=== PATIENT | female | born 1945 | race Caucasian/White ===

== ENCOUNTER 2025-01-07 19:40 | Observation (INO) | payer MEDICARE, OTHER ==
[2025-01-07] MEDS ORDERED: Sodium Chloride 0.9% 1000 ML 1,000 ML ONE (19:46)
[2025-01-07] MEDS ORDERED: EPINEPHRINE ABBOJECT 1 MG/10 ML ONE (19:46)
[2025-01-07] MEDS: EPINEPHRINE ABBOJECT 1 MG/10 ML IV ONE ×2 (19:50→20:50)
[2025-01-07] MEDS ORDERED: ROCEPHIN 2 GM/100 ML NACL 2 GM/100 ML IVPB IV ONE (19:56)
[2025-01-07] MEDS: ROCEPHIN 2 GM/100 ML NACL 2 GM/100 ML IVPB IV ONE (19:57)
[2025-01-07] MEDS: Sodium Chloride 0.9% 1000 ML 1,000 ML IV SCH ×2 (19:59→20:03)
--- NOTE | 2025-01-07 20:06 | ERPHSYRPT ---
- History of Present Illness Time Seen by Provider: 01/07/25 20:00 Source: patient, EMS Exam Limitations: no limitations Physician History: 79-year-old female brought in by ambulance for weakness. She has been treated for UTI since Thursday on levofloxacin. Patient reports suprapubic abdominal pain this morning with generalized weakness and dizziness. Blood pressure 80s over 30s on arrival with normal saline running. Patient is alert and oriented x 3. She has a history of uterine cancer. Timing/Duration: day(s) (5) Activites at Onset: rest Quality: sharpness Onset Location: suprapubic Pain Radiation: none Severity of Pain-Max: mild Severity of Pain-Current: mild Prior abdominal problems: UTI, other (uterine CA) Sexual intercourse history: non-contributory Modifying Factors: Improves With: nothing. Worsens With: palpation, urinating Associated Symptoms: abdominal pain, fever, nausea, vomiting, dysuria, urinary frequency, No swelling Allergies/Adverse Reactions: Sulfa (Sulfonamide Antibiotics) Adverse Reaction (Intermediate, Verified 01/07/25 19:44) Home Medications: Albuterol Sulfate [Albuterol Sulfate Hfa] 2 puffs IH Q4H PRN PRN 01/07/25 [History] Allopurinol 100 mg [Zyloprim 100 mg] 1 tab PO DAILY 01/07/25 [History] Dapagliflozin Propanediol [Farxiga] 1 tab PO DAILY 01/07/25 [History] Diclofenac Sodium [Diclofono] 1 applic TOP QID 01/07/25 [History] Fluconazole 100 mg [Diflucan 100 MG] 1 tab PO DAILY 01/07/25 [History] Fluticasone Propionate 50 mcg IH DAILY 01/07/25 [History] Furosemide [Lasix] 20 mg PO DAILY 01/07/25 [History] Gabapentin 400 mg PO DAILY 01/07/25 [History] Gabapentin 800 mg PO EVENING MEAL 01/07/25 [History] Glipizide 10 mg [Glucotrol 10 MG] 1 tab PO BID 01/07/25 [History] Imipramine HCl 25 mg PO HS 01/07/25 [History] Insulin Glargine,Hum.rec.anlog [Basaglar Kwikpen U-100] 10 - 15 units SQ BID PRN 01/07/25 [History] Latanoprost/Pf [Iyuzeh 0.005% Eye Drop] 1 drop DROPS HS 01/07/25 [History] Levothyroxine Sodium [Levothyroxine] 25 mcg PO DAILY 01/07/25 [History] Ondansetron ODT 4 MG [Zofran Odt 4 mg] 1 tab PO Q6H PRN PRN 01/07/25 [History] PANTOPRAZOLE 40 mg Tablet [Protonix 40MG Tablet] 1 tab PO HS 01/07/25 [History] Sertraline HCl [Zoloft] 25 mg PO DAILY 01/07/25 [History] Spironolactone 25 mg [Aldactone 25 MG] 1 tab PO DAILY 01/07/25 [History] Tamsulosin HCl 0.4 mg [Flomax 0.4 MG] 1 cap PO DAILY 01/07/25 [History] Timolol Maleate/Pf [Timolol Maleate 0.5% Eye Drop] 1 drop DROPS BID 01/07/25 [History] Tirzepatide [Mounjaro] 7.5 mg SQ WEEKLY 01/07/25 [History] levoFLOXacin 1 tab PO DAILY 01/07/25 [History] - Review of Systems All Other Systems: Reviewed and Negative - Nursing Vital Signs Nursing Vital Signs: Initial Vital Signs Temperature 99.1 F 01/07/25 19:41 Pulse Rate 79 01/07/25 19:41 Respiratory Rate 24 01/07/25 19:41 Blood Pressure 87/38 01/07/25 19:41 O2 Sat by Pulse Oximetry 98 01/07/25 19:41 Pain Scale Pain Intensity 0 - Physical Exam General Appearance: no apparent distress, obese Eye Exam: eyes nml inspection Ears, Nose, Throat Exam: normal ENT inspection Neck Exam: normal inspection, non-tender, supple, full range of motion Respiratory Exam: normal breath sounds, lungs clear, airway intact, No respiratory distress Cardiovascular Exam: regular rate/rhythm, murmur, capillary refill <2 sec, No edema Gastrointestinal/Abdomen Exam: soft, normal bowel sounds, tenderness (suprapubic), No distention, No mass, No guarding, No rebound Extremity Exam: normal inspection, normal range of motion, No tenderness Neurologic Exam: alert, oriented x 3, cooperative, 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-XII nml as tested Skin Exam: normal color, warm, dry SpO2 Interpretation: normal SpO2: 98 O2 Delivery: Room Air - Course Nursing assessment & vital signs reviewed: Yes EKG Interpreted by Me: RATE (79), Right Bundle Branch Block, Non-specific ST Changes, Other (atrial sensed, ventricular paced complexes, no ST elevation) Ordered Tests: Active Orders 24 hr Category Date Time Status Call Admit Doctor for Orders ON ADMISSION Care 01/07/25 22:41 Active Water Quality Analyst STAT Care 01/07/25 19:50 Completed Code Status Order ROUTINE Care 01/07/25 22:41 Active EKG-ER Only STAT Care 01/07/25 19:49 Completed IV Insertion STAT Care 01/07/25 19:[address] in Observation ROUTINE Care 01/07/25 22:41 Active House Regular Diet Diet 01/08/25 Breakfast Active ABDOMEN AND PELVIS W/0 CONTRAS [CT] Stat Exams 01/07/25 19:59 Completed BLOOD CULTURE Stat Lab 01/07/25 20:16 Stop Req BNPII [NT PRO BNPII] Stat Lab 01/07/25 20:16 Completed CBC W DIFF Stat Lab 01/07/25 20:16 Completed CMP Stat Lab 01/07/25 20:16 Completed CULTURE,URINE Stat Lab 01/07/25 21:32 Received Lactic Acid Stat Lab 01/07/25 20:10 Completed PROCALCITONIN Stat Lab 01/07/25 20:16 Completed TROPONIN Q4H Lab 01/07/25 20:16 Completed UA W/RFX UR CULTURE Stat Lab 01/07/25 21:32 Completed VENOUS BLOOD GAS Stat Lab 01/07/25 20:10 Completed Transfer Order Routine Transfer 01/07/25 Completed Medication Summary Discontinued Medications Generic Name Dose Route Start Last Admin Trade Name Freq PRN Reason Stop Dose Admin Cefepime HCl Confirm 01/07/25 22:16 Cefepime Hcl 2 Gm Vial Administered 01/07/25 22:17 Dose 2 g .ROUTE .STK-MED ONE Epinephrine HCl Confirm 01/07/25 19:46 Epinephrine 1 Mg/10 Ml Abbj 0.1 Mg/Ml Syr Administered 01/07/25 19:47 Dose 1 mg .ROUTE .STK-MED ONE Epinephrine HCl 0.1 mg 01/07/25 19:53 01/07/25 19:50 Epinephrine 1 Mg/10 Ml Abbj 0.1 Mg/Ml Syr IV 01/07/25 19:54 0.05 mg STAT ONE Administration Epinephrine HCl 0.05 mg 01/07/25 20:46 01/07/25 20:50 Epinephrine 1 Mg/10 Ml Abbj 0.1 Mg/Ml Syr IV 01/07/25 20:47 0.05 mg STAT ONE Administration Sodium Chloride Confirm 01/07/25 19:46 Sodium Chloride 0.9% 1000 Ml Administered 01/07/25 19:47 Dose 1,000 mls @ ud .ROUTE .STK-MED ONE Sodium Chloride 1,000 mls @ 999 mls/hr 01/07/25 20:00 01/07/25 22:19 Sodium Chloride 0.9% 1000 Ml IV 01/07/25 23:00 999 mls/hr .Q1H1M ROSALVA Administration Ceftriaxone Sodium 2 gm in 100 mls @ 200 mls/hr 01/07/25 19:49 01/07/25 20:27 Rocephin 2 Gm/100 Ml Nacl IV 01/07/25 20:18 Infused STAT ONE Infusion Sodium Chloride 1,000 mls @ 999 mls/hr 01/07/25 20:00 01/07/25 22:28 Sodium Chloride 0.9% 1000 Ml IV 02/06/25 19:59 125 mls/hr .Q1H1M ROSALVA Administration Ceftriaxone Sodium Confirm 01/07/25 19:56 Rocephin 2 Gm/100 Ml Nacl Administered 01/07/25 19:57 Dose 2 gm in 100 mls @ ud IV .STK-MED ONE Cefepime HCl 2 g/ Sodium 100 mls @ 200 mls/hr 01/07/25 20:16 01/07/25 22:20 Chloride IV 01/07/25 20:45 200 mls/hr STAT STA 200 mls/hr Administration Sodium Chloride Confirm 01/07/25 22:17 Sodium Chloride 0.9% Administered 01/07/25 22:18 Dose 100 mls @ ud .ROUTE .STK-MED ONE Lab/Rad Data: Laboratory Result Diagrams 01/07/25 20:16 01/07/25 20:16 Laboratory Results 03/29/25 03/29/25 03/29/25 Range/Units 21:32 20:16 20:16 WBC (3.98-10.04) x10^3/uL RBC (3.93-5.22) x10^6/uL Hgb (11.2-15.7) g/dL Hct (34.1-44.9) % MCV (79.4-94.8) fL MCH (25.6-32.2) pg MCHC (32.2-35.5) g/dL RDW (11.7-14.4) % Plt Count (182-369) x10^3/uL MPV (9.4-12.3) fL Gran % (34.0-71.1) % Immature Gran % (Auto) (0.001-0.429) % Nucleat RBC Rel Count (0.00-0.2) % Eos # (Auto) (0.04-0.36) x10^3/uL Immature Gran # (Auto) (0.001-0.031) x10^3u/L Absolute Lymphs (auto) (1.18-3.74) x10^3/uL Absolute Monos (auto) (0.24-0.86) x10^3/uL Absolute Nucleated RBC (0.00-0.012) x10^3u/L Lymphocytes % (19.3-51.7) % Monocytes % (4.7-12.5) % Eosinophils % (0.7-5.8) % Basophils % (0.1-1.2) % Absolute Granulocytes (1.56-6.13) x10^3/uL Basophils # (0.01-0.08) x10^3/uL pO2/FiO2 Ratio % VBG pH (7.32-7.42) VBG pCO2 at Pat Temp (42-55) mm/Hg VBG pO2 at Pat Temp (25-40) mm/Hg VBG HCO3 (22-28) meq/L VBG O2 Sat (Eloy) (95-100) VBG Base Excess (-2.0-2.0) VBG Hemoglobin VBG Carboxyhemoglobin (0.0-6.9) % T HGB POC Potassium (3.5-5.1) Sodium (135-145) mmol/L Potassium (3.5-5.1) mmol/L Chloride (98-107) mmol/L Carbon Dioxide (22-30) mmol/L Anion Gap (5-15) MEQ/L BUN (7-17) mg/dL Creatinine (0.52-1.04) mg/dL Estimated GFR ML/MIN Glucose (74-106) mg/dL Lactic Acid (0.4-2.0) Calcium (8.4-10.2) mg/dL Total Bilirubin (0.2-1.3) mg/dL AST (14-36) U/L ALT (0-35) U/L Alkaline Phosphatase (38-126) U/L Troponin I < 0.012 (0.000-0.033) ng/mL NT-Pro-B Natriuret Pep 372 (<300) pg/mL Serum Total Protein (6.3-8.2) g/dL Albumin (3.5-5.0) g/dL Procalcitonin 0.818 H (0.030-0.080) ng/mL Urine Color Yellow (Yellow) Urine Appearance Cloudy A (Clear) Urine pH 7.0 (4.6-8.0) Ur Specific Moran 1.010 (1.005-1.030) Urine Protein Trace A (Negative) Urine Glucose (UA) 500 A (Negative) mg/dL Urine Ketones Negative (Negative) Urine Blood Large A (Negative) Urine Nitrite Negative (Negative) Urine Bilirubin Negative (Negative) Urine Urobilinogen 0.2 (0.2) mg/dL Ur Leukocyte Esterase Moderate A (Negative) U Hyaline Cast (Auto) NONE SEEN (0-2) /LPF Urine Microscopic RBC 21-50 A (0-5) /HPF Urine Microscopic WBC 51-100 A (0-5) /HPF Ur Epithelial Cells Few (None Seen) /HPF Urine Bacteria Many A (None Seen) /HPF Urine Yeast (Budding) Few A (None Seen) /HPF Urine Culture Reflexed YES (NO) 01/07/25 01/07/25 01/07/25 Range/Units 20:16 20:16 20:10 WBC 7.4 (3.98-10.04) x10^3/uL RBC 3.96 (3.93-5.22) x10^6/uL Hgb 10.7 L (11.2-15.7) g/dL Hct 35.7 (34.1-44.9) % MCV 90.2 (79.4-94.8) fL MCH 27.0 (25.6-32.2) pg MCHC 30.0 L (32.2-35.5) g/dL RDW 15.4 H (11.7-14.4) % Plt Count 145 L (182-369) x10^3/uL MPV 9.9 (9.4-12.3) fL Gran % 83.0 H (34.0-71.1) % Immature Gran % (Auto) 1.0 H (0.001-0.429) % Nucleat RBC Rel Count 0.0 (0.00-0.2) % Eos # (Auto) 0.23 (0.04-0.36) x10^3/uL Immature Gran # (Auto) 0.07 H (0.001-0.031) x10^3u/L Absolute Lymphs (auto) 0.64 L (1.18-3.74) x10^3/uL Absolute Monos (auto) 0.28 (0.24-0.86) x10^3/uL Absolute Nucleated RBC 0.00 (0.00-0.012) x10^3u/L Lymphocytes % 8.7 L (19.3-51.7) % Monocytes % 3.8 L (4.7-12.5) % Eosinophils % 3.1 (0.7-5.8) % Basophils % 0.4 (0.1-1.2) % Absolute Granulocytes 6.11 (1.56-6.13) x10^3/uL Basophils # 0.03 (0.01-0.08) x10^3/uL pO2/FiO2 Ratio 21.0 % VBG pH 7.60 H* (7.32-7.42) VBG pCO2 at Pat Temp 26 L (42-55) mm/Hg VBG pO2 at Pat Temp 161 H (25-40) mm/Hg VBG HCO3 25.5 (22-28) meq/L VBG O2 Sat (Eloy) 99.9 (95-100) VBG Base Excess 4.6 H (-2.0-2.0) VBG Hemoglobin 11.5 VBG Carboxyhemoglobin 4.8 (0.0-6.9) % T HGB POC Potassium 5.2 H (3.5-5.1) Sodium 134 L (135-145) mmol/L Potassium 4.6 (3.5-5.1) mmol/L Chloride 99 (98-107) mmol/L Carbon Dioxide 30 (22-30) mmol/L Anion Gap 10.2 (5-15) MEQ/L BUN 23 H (7-17) mg/dL Creatinine 1.23 H (0.52-1.04) mg/dL Estimated GFR 44.2 ML/MIN Glucose 141 H (74-106) mg/dL Lactic Acid (0.4-2.0) Calcium 8.1 L (8.4-10.2) mg/dL Total Bilirubin 0.50 (0.2-1.3) mg/dL AST 29 (14-36) U/L ALT 16 (0-35) U/L Alkaline Phosphatase 108 (38-126) U/L Troponin I (0.000-0.033) ng/mL NT-Pro-B Natriuret Pep (<300) pg/mL Serum Total Protein 5.1 L (6.3-8.2) g/dL Albumin 3.0 L (3.5-5.0) g/dL Procalcitonin (0.030-0.080) ng/mL Urine Color (Yellow) Urine Appearance (Clear) Urine pH (4.6-8.0) Ur Specific Moran (1.005-1.030) Urine Protein (Negative) Urine Glucose (UA) (Negative) mg/dL Urine Ketones (Negative) Urine Blood (Negative) Urine Nitrite (Negative) Urine Bilirubin (Negative) Urine Urobilinogen (0.2) mg/dL Ur Leukocyte Esterase (Negative) U Hyaline Cast (Auto) (0-2) /LPF Urine Microscopic RBC (0-5) /HPF Urine Microscopic WBC (0-5) /HPF Ur Epithelial Cells (None Seen) /HPF Urine Bacteria (None Seen) /HPF Urine Yeast (Budding) (None Seen) /HPF Urine Culture Reflexed (NO) 01/07/25 Range/Units 20:10 WBC (3.98-10.04) x10^3/uL RBC (3.93-5.22) x10^6/uL Hgb (11.2-15.7) g/dL Hct (34.1-44.9) % MCV (79.4-94.8) fL MCH (25.6-32.2) pg MCHC (32.2-35.5) g/dL RDW (11.7-14.4) % Plt Count (182-369) x10^3/uL MPV (9.4-12.3) fL Gran % (34.0-71.1) % Immature Gran % (Auto) (0.001-0.429) % Nucleat RBC Rel Count (0.00-0.2) % Eos # (Auto) (0.04-0.36) x10^3/uL Immature Gran # (Auto) (0.001-0.031) x10^3u/L Absolute Lymphs (auto) (1.18-3.74) x10^3/uL Absolute Monos (auto) (0.24-0.86) x10^3/uL Absolute Nucleated RBC (0.00-0.012) x10^3u/L Lymphocytes % (19.3-51.7) % Monocytes % (4.7-12.5) % Eosinophils % (0.7-5.8) % Basophils % (0.1-1.2) % Absolute Granulocytes (1.56-6.13) x10^3/uL Basophils # (0.01-0.08) x10^3/uL pO2/FiO2 Ratio % VBG pH (7.32-7.42) VBG pCO2 at Pat Temp (42-55) mm/Hg VBG pO2 at Pat Temp (25-40) mm/Hg VBG HCO3 (22-28) meq/L VBG O2 Sat (Eloy) (95-100) VBG Base Excess (-2.0-2.0) VBG Hemoglobin VBG Carboxyhemoglobin (0.0-6.9) % T HGB POC Potassium (3.5-5.1) Sodium (135-145) mmol/L Potassium (3.5-5.1) mmol/L Chloride (98-107) mmol/L Carbon Dioxide (22-30) mmol/L Anion Gap (5-15) MEQ/L BUN (7-17) mg/dL Creatinine (0.52-1.04) mg/dL Estimated GFR ML/MIN Glucose (74-106) mg/dL Lactic Acid 0.9 (0.4-2.0) Calcium (8.4-10.2) mg/dL Total Bilirubin (0.2-1.3) mg/dL AST (14-36) U/L ALT (0-35) U/L Alkaline Phosphatase (38-126) U/L Troponin I (0.000-0.033) ng/mL NT-Pro-B Natriuret Pep (<300) pg/mL Serum Total Protein (6.3-8.2) g/dL Albumin (3.5-5.0) g/dL Procalcitonin (0.030-0.080) ng/mL Urine Color (Yellow) Urine Appearance (Clear) Urine pH (4.6-8.0) Ur Specific Moran (1.005-1.030) Urine Protein (Negative) Urine Glucose (UA) (Negative) mg/dL Urine Ketones (Negative) Urine Blood (Negative) Urine Nitrite (Negative) Urine Bilirubin (Negative) Urine Urobilinogen (0.2) mg/dL Ur Leukocyte Esterase (Negative) U Hyaline Cast (Auto) (0-2) /LPF Urine Microscopic RBC (0-5) /HPF Urine Microscopic WBC (0-5) /HPF Ur Epithelial Cells (None Seen) /HPF Urine Bacteria (None Seen) /HPF Urine Yeast (Budding) (None Seen) /HPF Urine Culture Reflexed (NO) - Progress Progress: improved Air Movement: good Progress Note: 01/07/25 20:09 Sepsis evaluation initiated. Started on Rocephin 2 g. 3 L normal saline ordered with pressure bag delivery to help improve blood pressure. Push dose epinephrine 10 mcg/mL as needed to help support her blood pressure at this time. 5 mcg initially given which improved her blood pressure to 149/43. CT abdomen pelvis ordered due to suprapubic tenderness and history of uterine cancer. Will continue to monitor blood pressure and if she needs continued support despite IV resuscitation Central line will be placed and Levophed will be initiated. Found urine cx from [facility] showing pseudomonas, abx changed to Cefepime. BP improved after 3L NS bolus. Cr 1.23. Normal WBC, Lactic. CT abd/pelvis unremarkable. Dr. Bee accepts for admission at 2219. Blood Culture(s) Obtained: Yes Antibiotics given: Yes Discussed with : Gama Will see patient in: hospital (observation) Counseled pt/family regarding: lab results, diagnosis, need for follow-up, rad results Medical Desision Making - Diagnostic Testing Diagnostic test were ordered, analyzed, and reviewed by me: Yes Radiological Interpretation: Interpreted by me, Reviewed by me, Teleradiologist Report - Risk of complications The pt has a mod risk of morbidity or mortality based on: Need for prescription drug management The pt has a high risk of morbidity or mortality based on: Decision regarding hospitilization or escalation of hosp level of care - Departure Departure Disposition: Observation Clinical Impression: Anemia, UTI (urinary tract infection), Pseudomonas urinary tract infection, Failure of outpatient treatment, FLOR (acute kidney injury) Condition: Good Critical Care Time: No
[2025-01-07 20:15] LABS: VBG BASE EXCESS 4.6 (-2.0-2.0); VBG CARBOXYHEMOGLOBIN 4.8 % T HGB (0.0-6.9); VBG HCO3- 25.5 meq/L (22-28); VBG HEMOGLOBIN 11.5; VBG O2 SATURATION 99.9 (95-100); VBG POTASSIUM 5.2 (3.5-5.1)
[2025-01-07 20:16] LABS: VBG pH 7.6 (7.32-7.42)
[2025-01-07 20:19] LABS: Absolute Neutrophil Ct (ANC) 6.11 x10^3/uL (1.56-6.13); BASOPHIL % 0.4 % (0.1-1.2); Basophil (Absolute #) 0.03 x10^3/uL (0.01-0.08); Eosinophil % 3.1 % (0.7-5.8); Eosinophil (Absolute #) 0.23 x10^3/uL (0.04-0.36); Hematocrit 35.7 % (34.1-44.9); Hemoglobin 10.7 g/dL (11.2-15.7); IMMATURE GRAN # 0.07 x10^3u/L (0.001-0.031); Lymphocyte (Absolute #) 0.64 x10^3/uL (1.18-3.74); Lymphocytes % 8.7 % (19.3-51.7); Mean Cell Volume 90.2 fL (79.4-94.8); Mean Platelet Volume 9.9 fL (9.4-12.3); Monocyte (Absolute #) 0.28 x10^3/uL (0.24-0.86); Monocytes % 3.8 % (4.7-12.5); Platelet Count 145 x10^3/uL (182-369); Red Blood Count 3.96 x10^6/uL (3.93-5.22); Red Cell Distribution Width 15.4 % (11.7-14.4); White Blood Count 7.4 x10^3/uL (3.98-10.04)
[2025-01-07 20:33] LABS: ANION GAP 10.2 MEQ/L (5-15); BILIRUBIN,TOTAL 0.5 mg/dL (0.2-1.3); Calcium 8.1 mg/dL (8.4-10.2); Creatinine 1 1.23 mg/dL (0.52-1.04); EST GLOMERULAR FILTRATION RATE 44.2 ML/MIN; Potassium 4.6 mmol/L (3.5-5.1); Total Protein 5.1 g/dL (6.3-8.2)
[2025-01-07 20:49] LABS: PROCALCITONIN 0.818 ng/mL (0.030-0.080)
--- NOTE | 2025-01-07 21:52 | XRAY ---
CLINICAL HISTORY: abd pain COMPARISON: No prior studies available for comparison. TECHNIQUE: Non-contrast CT of the abdomen and pelvis was performed, with the following protocol: axial images, and reconstructed coronal and sagittal images. No intravenous contrast was administered. One of the following dose reduction techniques was utilized for this exam: Automated exposure control, adjustment of the mA and/or kV according to patient size, and use of iterative reconstruction. DLP: 1217.8 mGy-cm, CTDI: 22.26 mGy. FINDINGS: Abdomen: Liver: Enlarged in size, measuring 18.5 cm. No focal lesions, cysts, or masses were identified. Gallbladder and Biliary System: The gallbladder is surgically removed. Pancreas: Pancreatic head, body, and tail are visualized and appear normal in size and density. No pancreatic masses or calcifications were noted. Spleen: Enlarged in size with AP diameter measuring 15.6 cm. No splenic lesions or masses were identified. Kidneys and Adrenal Glands: Bilateral renal lower calyceal nonobstructing stones are seen measuring 0.7 cm in the right and 1 cm in the left. Both kidneys are normal in size, shape, and position. Cortical thickness is within normal limits. A left renal lower pole cortical cyst is noted, measuring 5.4 cm. No renal hydronephrosis. Adrenal glands are unremarkable. Appendix is not clearly visualised. Pelvis: Urinary Bladder: Normal in contour and wall thickness. No intraluminal lesions. Uterus and Ovaries: Not visualized. Vagina: Normal in contour and wall thickness. Cervix: No evidence of mass or abnormal thickening. Peritoneal and Retroperitoneal Structures: No free fluid or abnormal fluid collections were identified within the abdomen or pelvis. No lymphadenopathy was noted. Bowel: Sigmoid diverticulosis. No evident diverticulitis. No evidence of bowel obstruction or wall thickening. Bones and Soft Tissues: Right hip replacement. No fractures or abnormal masses were identified. IMPRESSION: 1. Bilateral renal lower calyceal nonobstructing stones are seen measuring 0.7 cm in the right and 1 cm in the left. 2. Hepatosteatosis. 3. Splenomegaly. 4. Sigmoid diverticulosis. No evident diverticulitis. 5. A left renal lower pole cortical cyst is noted, measuring 5.4 cm. Electronically Signed by: Debbie Harrison MD. (01/07/2025 21:49:09 EDT)
[2025-01-07 21:53] LABS: Appearance Cloudy (Clear); Bacteria Many /HPF (None Seen); Bilirubin Negative (Negative); Blood Large (Negative); Epithelial Cells Few /HPF (None Seen); Glucose, Urine 500 mg/dL (Negative); Hyaline Casts NONE SEEN /LPF (0-2); Ketones Negative (Negative); Leukocyte Esterase Moderate (Negative); Nitrite Negative (Negative); Protein,Urine Dip Trace (Negative); RBC 21-50 /HPF (0-5); Urobilinogen 0.2 mg/dL (0.2); WBC 51-100 /HPF (0-5)
[2025-01-07 22:05] LABS: Budding Yeast Few /HPF (None Seen)
[2025-01-07] MEDS ORDERED: Maxipime 2 GM ONE (22:16)
[2025-01-07] MEDS ORDERED: Sodium Chloride 0.9% 100 ML ONE (22:17)
[2025-01-07] MEDS: Maxipime 2 GM** 2 G in Sodium Chloride 0.9% 100 ML IV STA (22:20)
[2025-01-07] MEDS ORDERED: ZOFRAN ODT 4 MG PO PRN (23:55)
[2025-01-07] MEDS ORDERED: VENTOLIN COMMON CANISTER IH PRN (23:55)
[2025-01-07] MEDS ORDERED: DUONEB 0.5-3 MG/3 ml Neb IH PRN (23:57)
[2025-01-08] MEDS: TYLENOL 325 MG PO PRN (00:43)
--- NOTE | 2025-01-08 00:55 | PCM.HP ---
History of Present Illness - Chief Complaint Chief Complaint: generalized weakness Date: 01/07/25 History of Present Illness: 79-year-old woman with history of chronic urinary incontinence due to lack of perineal sensation, recurrent UTI, kidney stones, DM2, COPD on 3L O2, aortic stenosis, depression, and hypothyroidism, who presents with diffuse generalized weakness and found to have sepsis in the ED. Patient states that because of a chronic issue of unknown etiology where she is unable to sense much in her perineum, leading to chronic urinary incontinence, she never knows when she has a UTI until she gets severely ill. She states this initially developed when she had multiple frequent kidney stones leading to chronic urinary pain for months, only relieved after multiple stones were removed the patient had Botox injections in the bladder. Patient normally takes suppressive Keflex for her recurrent UTIs. Patient went to [facility] ER on 12/30 where she was again found to have kidney stones, including 1 suspected to be in the ureter. She was started on Levaquin at that time, although she did not start taking them until 4 days prior to this admission. She had follow-up with urology, who scheduled plan for OR next week for removal of the kidney stones. However, today, patient began to feel severe generalized weakness, leading to a fall this morning, and unable to keep up on her legs. She developed initially severe chills and rigors, then severe diaphoresis. Of note, patient also notes that she has aortic stenosis that has not developed severely enough to schedule valve replacement. However, she notes that she has severe orthostatic hypotension, and with any heavy exertion she develops presyncope. She has noted some intermittent specks of blood in her urine, as reported by her home health aide because she cannot see her own urine due to macular degeneration. In the ED, patient was severely hypotensive, requiring multiple low-dose epinephrine boluses while waiting for fluid replacement. Her blood pressure has been stable after getting 2 L normal saline. Some [facility] records were able to be obtained by the ED provider, which noted that patient had Pseudomonas in her urine culture last week, but antibiotic susceptibility testing was not available. - Review of Systems All Other Systems: Reviewed and Negative (except as per HPI) Medications & Allergies Home Medications: Home Medication List Albuterol Sulfate [Albuterol Sulfate Hfa] 2 puffs IH Q4H PRN PRN 01/07/25 [History Confirmed 01/07/25] Allopurinol 100 mg [Zyloprim 100 mg] 1 tab PO DAILY 01/07/25 [History Confirmed 01/07/25] Dapagliflozin Propanediol [Farxiga] 1 tab PO DAILY 01/07/25 [History Confirmed 01/07/25] Diclofenac Sodium [Diclofono] 1 applic TOP QID 01/07/25 [History Confirmed 01/07/25] Fluconazole 100 mg [Diflucan 100 MG] 1 tab PO DAILY 01/07/25 [History Confirmed 01/07/25] Fluticasone Propionate 50 mcg IH DAILY 01/07/25 [History Confirmed 01/07/25] Furosemide [Lasix] 20 mg PO DAILY 01/07/25 [History Confirmed 01/07/25] Gabapentin 400 mg PO DAILY 01/07/25 [History Confirmed 01/07/25] Gabapentin 800 mg PO EVENING MEAL 01/07/25 [History Confirmed 01/07/25] Glipizide 10 mg [Glucotrol 10 MG] 1 tab PO BID 01/07/25 [History Confirmed 01/07/25] Imipramine HCl 25 mg PO HS 01/07/25 [History Confirmed 01/07/25] Insulin Glargine,Hum.rec.anlog [Lauraaglapril Douglas U-100] 10 - 15 units SQ BID PRN 01/07/25 [History Confirmed 01/07/25] Latanoprost/Pf [Iyuzeh 0.005% Eye Drop] 1 drop DROPS HS 01/07/25 [History Confirmed 01/07/25] Levothyroxine Sodium [Levothyroxine] 25 mcg PO DAILY 01/07/25 [History Confirmed 01/07/25] Ondansetron ODT 4 MG [Zofran Odt 4 mg] 1 tab PO Q6H PRN PRN 01/07/25 [History Confirmed 01/07/25] PANTOPRAZOLE 40 mg Tablet [Protonix 40MG Tablet] 1 tab PO HS 01/07/25 [History Confirmed 01/07/25] Sertraline HCl [Zoloft] 25 mg PO DAILY 01/07/25 [History Confirmed 01/07/25] Spironolactone 25 mg [Aldactone 25 MG] 1 tab PO DAILY 01/07/25 [History Confirmed 01/07/25] Tamsulosin HCl 0.4 mg [Flomax 0.4 MG] 1 cap PO DAILY 01/07/25 [History Confirmed 01/07/25] Timolol Maleate/Pf [Timolol Maleate 0.5% Eye Drop] 1 drop DROPS BID 01/07/25 [History Confirmed 01/07/25] Tirzepatide [Mounjaro] 7.5 mg SQ WEEKLY 01/07/25 [History Confirmed 01/07/25] levoFLOXacin 1 tab PO DAILY 01/07/25 [History Confirmed 01/07/25] Allergies/Adverse Reactions: Allergies Allergy/AdvReac Type Severity Reaction Status Date / Time Sulfa (Sulfonamide AdvReac Intermediate Verified 01/07/25 19:44 Antibiotics) - Past Medical History Past Medical History: Yes Neurological History: No Pertinent History ENT History: Cataracts, Glaucoma, Macular Degeneration Cardiac History: Congestive Heart Failure, Coronary Artery Disease Respiratory History: CHF, COPD Endocrine Medical History: Diabetes Type II, Hypothyroidism Musculoskelatal History: No Pertinent History GI Medical History: Diverticulitis, GERD History: No Pertinent History Pyscho-Social History: No Pertinent History Reproductive Disorders: Breast Cancer, Uterine Cancer Comment: neuropathy, - Past Surgical History Past Surgical History: Yes Cardiac History: Cardiac Catheterization, Pacemaker Respiratory Surgery: No Pertinent History GI Surgical History: Appendectomy, Cholecystectomy Musculskeletal Surgical Hx: Joint Replacement Female Surgical History: Mastectomy Other Surgical History: hip replacement rt. kidney stones. feet surgeries. pacemaker rt side Significant Family History: diabetes - Social History Smoking Status: Never smoker Exposure to second hand smoke: No Alcohol: None Drug Use: none - Social Determinants of Health Will the patient participate in the screening: Yes Do you worry about a steady place to live?: No Do you have any problems with any of the following?: No known problems In the past 12 months,have you had to go without utilities?: No Have you or anyone in your house had to go without enough: No Transportation Issues: Yes Has anyone in your support network made you feel unsafe?: No Comment: Pt has an aide that takes her - Physical Exam Vital Signs: Vital Signs - 24 hr Temp Pulse Resp BP BP Pulse Ox 01/07/25 23:09 98 01/07/25 22:10 70 13 137/57 100 01/07/25 22:07 70 15 137/51 97 01/07/25 22:00 71 19 105/52 98 01/07/25 21:55 70 20 81/27 98 01/07/25 21:30 70 20 72/38 100 01/07/25 21:25 75 15 73/18 96 01/07/25 21:13 83 26 H 92/37 01/07/25 21:11 76 18 71/56 99 01/07/25 20:57 81 16 174/66 97 01/07/25 20:56 74 18 62 L 01/07/25 20:41 62 15 96/43 99 01/07/25 20:31 77 23 88/35 100 01/07/25 20:27 77 20 54/32 95 01/07/25 20:26 79 15 97 01/07/25 20:01 79 18 149/43 100 01/07/25 19:59 80 20 174/57 97 01/07/25 19:53 76 17 95/43 95 01/07/25 19:45 76 12 82/42 99 01/07/25 19:41 99.1 F 79 24 87/38 98 Physical Exam GEN: Lying in bed in no acute distress. HENT: Normocephalic, atraumatic. Moist mucous membranes. EYES: Normal inspection, anicteric sclera, extraocular movements intact. NECK: Supple, full range of motion CV: Regular rate and rhythm. Ivy-shaped systolic murmur at the left upper sternal border. No JVD or edema. PULM: Clear to auscultation bilaterally, no work of breathing. On 3 L oxygen by nasal cannula ABD: Nondistended, nontender. MSK: No joint effusions, full range of motion SKIN: No rashes, normal color. NEURO: Face symmetric, no focal motor or sensory deficits. PSYCH: Alert, oriented x 3 Results - Labs Lab/Micro Results: Lab Results-Last 24 Hours 01/07/25 01/07/25 01/07/25 Range/Units 20:10 20:10 20:16 WBC 7.4 (3.98-10.04) x10^3/uL RBC 3.96 (3.93-5.22) x10^6/uL Hgb 10.7 L (11.2-15.7) g/dL Hct 35.7 (34.1-44.9) % MCV 90.2 (79.4-94.8) fL MCH 27.0 (25.6-32.2) pg MCHC 30.0 L (32.2-35.5) g/dL RDW 15.4 H (11.7-14.4) % Plt Count 145 L (182-369) x10^3/uL MPV 9.9 (9.4-12.3) fL Gran % 83.0 H (34.0-71.1) % Immature Gran % (Auto) 1.0 H (0.001-0.429) % Nucleat RBC Rel Count 0.0 (0.00-0.2) % Eos # (Auto) 0.23 (0.04-0.36) x10^3/uL Immature Gran # (Auto) 0.07 H (0.001-0.031) x10^3u/L Absolute Lymphs (auto) 0.64 L (1.18-3.74) x10^3/uL Absolute Monos (auto) 0.28 (0.24-0.86) x10^3/uL Absolute Nucleated RBC 0.00 (0.00-0.012) x10^3u/L Lymphocytes % 8.7 L (19.3-51.7) % Monocytes % 3.8 L (4.7-12.5) % Eosinophils % 3.1 (0.7-5.8) % Basophils % 0.4 (0.1-1.2) % Absolute Granulocytes 6.11 (1.56-6.13) x10^3/uL Basophils # 0.03 (0.01-0.08) x10^3/uL pO2/FiO2 Ratio 21.0 % VBG pH 7.60 H* (7.32-7.42) VBG pCO2 at Pat Temp 26 L (42-55) mm/Hg VBG pO2 at Pat Temp 161 H (25-40) mm/Hg VBG HCO3 25.5 (22-28) meq/L VBG O2 Sat (Eloy) 99.9 (95-100) VBG Base Excess 4.6 H (-2.0-2.0) VBG Hemoglobin 11.5 VBG Carboxyhemoglobin 4.8 (0.0-6.9) % T HGB POC Potassium 5.2 H (3.5-5.1) Sodium (135-145) mmol/L Potassium (3.5-5.1) mmol/L Chloride (98-107) mmol/L Carbon Dioxide (22-30) mmol/L Anion Gap (5-15) MEQ/L BUN (7-17) mg/dL Creatinine (0.52-1.04) mg/dL Estimated GFR ML/MIN Glucose (74-106) mg/dL Lactic Acid 0.9 (0.4-2.0) Calcium (8.4-10.2) mg/dL Total Bilirubin (0.2-1.3) mg/dL AST (14-36) U/L ALT (0-35) U/L Alkaline Phosphatase (38-126) U/L Troponin I (0.000-0.033) ng/mL NT-Pro-B Natriuret Pep (<300) pg/mL Serum Total Protein (6.3-8.2) g/dL Albumin (3.5-5.0) g/dL Procalcitonin (0.030-0.080) ng/mL Urine Color (Yellow) Urine Appearance (Clear) Urine pH (4.6-8.0) Ur Specific Baker (1.005-1.030) Urine Protein (Negative) Urine Glucose (UA) (Negative) mg/dL Urine Ketones (Negative) Urine Blood (Negative) Urine Nitrite (Negative) Urine Bilirubin (Negative) Urine Urobilinogen (0.2) mg/dL Ur Leukocyte Esterase (Negative) U Hyaline Cast (Auto) (0-2) /LPF Urine Microscopic RBC (0-5) /HPF Urine Microscopic WBC (0-5) /HPF Ur Epithelial Cells (None Seen) /HPF Urine Bacteria (None Seen) /HPF Urine Yeast (Budding) (None Seen) /HPF Urine Culture Reflexed (NO) 01/07/25 01/07/25 01/07/25 Range/Units 20:16 20:16 20:16 WBC (3.98-10.04) x10^3/uL RBC (3.93-5.22) x10^6/uL Hgb (11.2-15.7) g/dL Hct (34.1-44.9) % MCV (79.4-94.8) fL MCH (25.6-32.2) pg MCHC (32.2-35.5) g/dL RDW (11.7-14.4) % Plt Count (182-369) x10^3/uL MPV (9.4-12.3) fL Gran % (34.0-71.1) % Immature Gran % (Auto) (0.001-0.429) % Nucleat RBC Rel Count (0.00-0.2) % Eos # (Auto) (0.04-0.36) x10^3/uL Immature Gran # (Auto) (0.001-0.031) x10^3u/L Absolute Lymphs (auto) (1.18-3.74) x10^3/uL Absolute Monos (auto) (0.24-0.86) x10^3/uL Absolute Nucleated RBC (0.00-0.012) x10^3u/L Lymphocytes % (19.3-51.7) % Monocytes % (4.7-12.5) % Eosinophils % (0.7-5.8) % Basophils % (0.1-1.2) % Absolute Granulocytes (1.56-6.13) x10^3/uL Basophils # (0.01-0.08) x10^3/uL pO2/FiO2 Ratio % VBG pH (7.32-7.42) VBG pCO2 at Pat Temp (42-55) mm/Hg VBG pO2 at Pat Temp (25-40) mm/Hg VBG HCO3 (22-28) meq/L VBG O2 Sat (Eloy) (95-100) VBG Base Excess (-2.0-2.0) VBG Hemoglobin VBG Carboxyhemoglobin (0.0-6.9) % T HGB POC Potassium (3.5-5.1) Sodium 134 L (135-145) mmol/L Potassium 4.6 (3.5-5.1) mmol/L Chloride 99 (98-107) mmol/L Carbon Dioxide 30 (22-30) mmol/L Anion Gap 10.2 (5-15) MEQ/L BUN 23 H (7-17) mg/dL Creatinine 1.23 H (0.52-1.04) mg/dL Estimated GFR 44.2 ML/MIN Glucose 141 H (74-106) mg/dL Lactic Acid (0.4-2.0) Calcium 8.1 L (8.4-10.2) mg/dL Total Bilirubin 0.50 (0.2-1.3) mg/dL AST 29 (14-36) U/L ALT 16 (0-35) U/L Alkaline Phosphatase 108 (38-126) U/L Troponin I < 0.012 (0.000-0.033) ng/mL NT-Pro-B Natriuret Pep 372 (<300) pg/mL Serum Total Protein 5.1 L (6.3-8.2) g/dL Albumin 3.0 L (3.5-5.0) g/dL Procalcitonin 0.818 H (0.030-0.080) ng/mL Urine Color (Yellow) Urine Appearance (Clear) Urine pH (4.6-8.0) Ur Specific Baker (1.005-1.030) Urine Protein (Negative) Urine Glucose (UA) (Negative) mg/dL Urine Ketones (Negative) Urine Blood (Negative) Urine Nitrite (Negative) Urine Bilirubin (Negative) Urine Urobilinogen (0.2) mg/dL Ur Leukocyte Esterase (Negative) U Hyaline Cast (Auto) (0-2) /LPF Urine Microscopic RBC (0-5) /HPF Urine Microscopic WBC (0-5) /HPF Ur Epithelial Cells (None Seen) /HPF Urine Bacteria (None Seen) /HPF Urine Yeast (Budding) (None Seen) /HPF Urine Culture Reflexed (NO) 01/07/25 Range/Units 21:32 WBC (3.98-10.04) x10^3/uL RBC (3.93-5.22) x10^6/uL Hgb (11.2-15.7) g/dL Hct (34.1-44.9) % MCV (79.4-94.8) fL MCH (25.6-32.2) pg MCHC (32.2-35.5) g/dL RDW (11.7-14.4) % Plt Count (182-369) x10^3/uL MPV (9.4-12.3) fL Gran % (34.0-71.1) % Immature Gran % (Auto) (0.001-0.429) % Nucleat RBC Rel Count (0.00-0.2) % Eos # (Auto) (0.04-0.36) x10^3/uL Immature Gran # (Auto) (0.001-0.031) x10^3u/L Absolute Lymphs (auto) (1.18-3.74) x10^3/uL Absolute Monos (auto) (0.24-0.86) x10^3/uL Absolute Nucleated RBC (0.00-0.012) x10^3u/L Lymphocytes % (19.3-51.7) % Monocytes % (4.7-12.5) % Eosinophils % (0.7-5.8) % Basophils % (0.1-1.2) % Absolute Granulocytes (1.56-6.13) x10^3/uL Basophils # (0.01-0.08) x10^3/uL pO2/FiO2 Ratio % VBG pH (7.32-7.42) VBG pCO2 at Pat Temp (42-55) mm/Hg VBG pO2 at Pat Temp (25-40) mm/Hg VBG HCO3 (22-28) meq/L VBG O2 Sat (Eloy) (95-100) VBG Base Excess (-2.0-2.0) VBG Hemoglobin VBG Carboxyhemoglobin (0.0-6.9) % T HGB POC Potassium (3.5-5.1) Sodium (135-145) mmol/L Potassium (3.5-5.1) mmol/L Chloride (98-107) mmol/L Carbon Dioxide (22-30) mmol/L Anion Gap (5-15) MEQ/L BUN (7-17) mg/dL Creatinine (0.52-1.04) mg/dL Estimated GFR ML/MIN Glucose (74-106) mg/dL Lactic Acid (0.4-2.0) Calcium (8.4-10.2) mg/dL Total Bilirubin (0.2-1.3) mg/dL AST (14-36) U/L ALT (0-35) U/L Alkaline Phosphatase (38-126) U/L Troponin I (0.000-0.033) ng/mL NT-Pro-B Natriuret Pep (<300) pg/mL Serum Total Protein (6.3-8.2) g/dL Albumin (3.5-5.0) g/dL Procalcitonin (0.030-0.080) ng/mL Urine Color Yellow (Yellow) Urine Appearance Cloudy A (Clear) Urine pH 7.0 (4.6-8.0) Ur Specific Baker 1.010 (1.005-1.030) Urine Protein Trace A (Negative) Urine Glucose (UA) 500 A (Negative) mg/dL Urine Ketones Negative (Negative) Urine Blood Large A (Negative) Urine Nitrite Negative (Negative) Urine Bilirubin Negative (Negative) Urine Urobilinogen 0.2 (0.2) mg/dL Ur Leukocyte Esterase Moderate A (Negative) U Hyaline Cast (Auto) NONE SEEN (0-2) /LPF Urine Microscopic RBC 21-50 A (0-5) /HPF Urine Microscopic WBC 51-100 A (0-5) /HPF Ur Epithelial Cells Few (None Seen) /HPF Urine Bacteria Many A (None Seen) /HPF Urine Yeast (Budding) Few A (None Seen) /HPF Urine Culture Reflexed YES (NO) Microbiology 01/07/25 19:49 Blood Culture Gram Stain - Final Blood Not Reportable - Radiology Impressions Radiology Exams & Impressions: Radiology Procedures Category Date Time Status ABDOMEN AND PELVIS W/0 CONTRAS [CT] Stat Exams 01/07/25 19:[address] abdomen/pelvis bilateral renal lower calyceal nonobstructing stones, but no ureteral stones. Assessment/Plan (1) Pseudomonas urinary tract infection Current Visit: Yes Status: Acute Assessment & Plan: 79-year-old woman with history of recurrent UTIs and kidney stones, urinary incontinence, COPD on 3 L oxygen, DM2, aortic stenosis, depression, orthostatic hypotension, and macular degeneration, who presents with sepsis secondary to acute cystitis. ## Sepsis secondary to acute cystitis with severe hypotension on arrival, eventually fluid responsive. Source appears to be urinary; patient has had recurrent UTI, and is normally on Keflex suppressive therapy. However, she failed outpatient therapy Levaquin, likely because she is growing Pseudomonas reportedly from her [facility] ED visit. It is difficult to assess for presence of dysuria based on patient's neurologic history, but she has an elevated procalcitonin and no other clear source of her sepsis. Start cefepime 1 g IV q.8 hours Follow-up with [facility] medical records to determine urine culture results and sensitivity testing Repeat fluid bolus as needed to maintain blood pressure, although currently stable ## Chronic urinary incontinence Consider Ku catheter if unable to maintain with home pads regimen ## COPD, chronic hypoxic respiratory failure patient remained stable on her home 3 L oxygen. Continue oxygen, titrate to maintain SpO2 between 91 and 94% PRN DuoNeb ## Type 2 diabetes on insulin at home. Patient does not think that her bladder neuropathy is related to her diabetes, but concerning for longstanding effects of her diabetes. Continue home insulin glargine, [address] on moderate dose sliding scale insulin Diabetic diet ## Aortic stenosis per patient, not severe enough to require intervention yet, per her host/hostess ground. However, she is describing some presyncope as well as orthostatic hypotension. She was previously on Lasix but this was stopped due to chronic hypotension. I suspect that her severe hypotension earlier was at least partially mediated by her aortic stenosis, as patients with AAS are particularly preload sensitive. Aggressive fluid replacement as needed to maintain blood pressure Monitor overall volume status ## Hypothyroidism Continue home levothyroxine 25 Dr. Virk daily CODE STATUS: Full code Prophylaxis: Lovenox 40 daily Diet: Diabetic Dispo: Place in observation Entirety of encounter took place via live audio/video telemedicine device, with remote physician and patient in hospital, with the assistance of bedside nurse. Code(s): N39.0 - URINARY TRACT INFECTION, SITE NOT SPECIFIED; B96.5 - PSEUDOMONAS (MALLEI) CAUSING DISEASES CLASSD [id number] Telemedicine Encounter - Telemedicine Encounter Telemedicine Encounter: "The entirety of this encounter was performed via Telemedicine" This visit was performed using real-time audio and video connection between my location and thepatients locationwith the assistance of a surrogateat the patients location. Written or verbal consent was obtained from the patient/guardian to perform this visit [email or web address] technology. Any patient questions regarding the telemedicine interaction were answered.
[2025-01-08 07:02] LABS: Hematocrit 34.2 % (34.1-44.9); Hemoglobin 10.4 g/dL (11.2-15.7); Mean Cell Volume 87.7 fL (79.4-94.8); Mean Corpuscular Hemoglobin 26.7 pg (25.6-32.2); Mean Corpuscular Hgb Concent. 30.4 g/dL (32.2-35.5); Platelet Count 110 x10^3/uL (182-369); Red Cell Distribution Width 15.6 % (11.7-14.4)
[2025-01-08 07:17] LABS: ANION GAP 10.1 MEQ/L (5-15); Calcium 7.9 mg/dL (8.4-10.2); Creatinine 1 1.24 mg/dL (0.52-1.04); EST GLOMERULAR FILTRATION RATE 43.7 ML/MIN; Potassium 4.5 mmol/L (3.5-5.1)
[2025-01-08] MEDS ORDERED: MEDICATION INTERVENTION MC SCH (07:30)
[2025-01-08] MEDS: SYNTHROID 25 MCG PO SCH (08:16)
[2025-01-08] MEDS: MAXIPIME 1 GM** 1 G in Dextrose 5%/Water IV Soln. 100ML PLUS BAG 100 ML IV SCH ×2 (08:16→14:39)
[2025-01-08] MEDS: NON-FORMULARY ITEM (Insulin Glargine,Hum.Rec.Anlog [Basaglar Kwikpen U-100] 100 UNIT/ML In SQ SCH (08:47)
[2025-01-08] MEDS ORDERED: NON-FORMULARY ITEM (Levothyroxine Sodium [Levothyroxine Sodium] 25 MCG Capsule) PO SCH (10:00)
[2025-01-08] MEDS ORDERED: NON-FORMULARY ITEM (Sertraline Hcl [Zoloft] 25 MG Tablet) PO SCH (10:00)
[2025-01-08] MEDS ORDERED: [UNRECOGNIZED DRUG - OTHER] DROPS SCH (10:00)
[2025-01-08] MEDS: Senokot-S Tablet PO ONE (10:19)
[2025-01-08] MEDS: Flomax 0.4 MG PO SCH (10:20)
[2025-01-08] MEDS: ZOLOFT 50 MG TABLET PO SCH (10:20)
[2025-01-08] MEDS: Aldactone 25 MG PO SCH (10:20)
[2025-01-08] MEDS: Neurontin PO SCH ×2 (10:20→18:26)
[2025-01-08] MEDS: ZYLOPRIM 100 MG PO SCH (10:21)
[2025-01-08] MEDS: Sodium Chloride 0.9% 1000 ML 1,000 ML IV SCH (10:22)
[2025-01-08] MEDS: ENOXAPARIN SODIUM SQ SCH (10:22)
[2025-01-08] MEDS: Lantus Insulin SQ SCH (10:30)
[2025-01-08] MEDS: TIMOPTIC 0.5% 5 ML OPHTHALMIC OP SCH (10:33)
--- NOTE | 2025-01-08 11:59 | PCM.NOTE ---
Date and Time: 01/08/25 1152 Subjective Assessment: Ms. Chan is an 79-year-old woman with a history of chronic urinary incontinence due to lack of perineal sensation, recurrent UTIs, kidney stones, DM2, COPD on 3L O2, aortic stenosis, depression, and hypothyroidism, presented with diffuse generalized weakness and was found to have sepsis in the emergency department. Her urinary incontinence, caused by an inability to sense perineal discomfort, prevents her from recognizing UTIs until they become severe. This condition developed after repeated kidney stones and chronic urinary pain, which was later managed with Botox injections. She typically takes suppressive Keflex for her recurrent UTIs. On 12/30, she visited the [facility] ER, where she was diagnosed with kidney stones, including one suspected in the ureter, and started on Levaquin, though she began taking it only 4 days before this admission. Urology had planned surgery for stone removal next week. On the day of admission, she experienced severe weakness, leading to a fall and symptoms of chills, rigors, and diaphoresis. She also has aortic stenosis but has not yet required valve replacement. She reported severe orthostatic hypotension and presyncope with exertion. Her home health aide noted intermittent blood in her urine, which she cannot see due to macular degeneration. In the ED, she was hypotensive and required multiple low-dose epinephrine boluses while awaiting fluid replacement. After receiving 2L of normal saline, her blood pressure stabilized. [facility] records revealed a Pseudomonas infection in her urine culture last week, but antibiotic susceptibility testing was not available. Hypotension resolved, and she is being managed with normal saline for FLOR. A PT evaluation for weakness is scheduled for tomorrow. Her CT abdomen/pelvis results are consistent with chronic conditions. She is feeling better, stronger, and reports constipation for which stool softeners were ordered. She denies chest pain, shortness of breath, abdominal pain, nausea, vomiting, or diarrhea. - Review of Systems Constitutional: Weakness, No Fever, No Chills Eyes: No Symptoms Ears, Nose, & Throat: No Symptoms Respiratory: No Cough, No Short Of Breath Cardiac: No Chest Pain, No Edema, No Syncope Abdominal/Gastrointestinal: Constipation, No Abdominal Pain, No Nausea, No Vomiting, No Diarrhea Genitourinary Symptoms: No Dysuria Musculoskeletal: No Back Pain, No Neck Pain Skin: No Rash Neurological: No Dizziness, No Focal Weakness, No Sensory Changes Psychological: No Symptoms Endocrine: No Symptoms Hematologic/Lymphatic: No Symptoms Immunological/Allergic: No Symptoms Objective Exam General Appearance: no apparent distress, alert, obese Neurologic Exam: alert, oriented x 3, cooperative, normal mood/affect, nml cerebellar function, sensation nml, motor weakness, No motor deficits Skin Exam: normal color, warm, dry Eye Exam: PERRL, EOMI, eyes nml inspection Ears, Nose, Throat Exam: normal ENT inspection, pharynx normal, moist mucous membranes Neck Exam: normal inspection, non-tender, supple, full range of motion Respiratory Exam: normal breath sounds, lungs clear, No respiratory distress Cardiovascular Exam: regular rate/rhythm, normal heart sounds, murmur (aortic), edema (non-pitting BLLE) Gastrointestinal/Abdomen Exam: soft, No tenderness, No mass Extremity Exam: normal inspection, normal range of motion Back Exam: normal inspection, normal range of motion, No CVA tenderness, No vertebral tenderness Pelvic Exam: deferred Rectal Exam: deferred Objective Data Vital Signs: Vital Signs - 24 hr Temp Pulse Resp BP BP Pulse Ox 01/08/25 09:05 68 16 97 01/08/25 07:36 96.8 F 52 L 16 122/51 100 01/08/25 03:58 97.1 F 65 18 121/58 99 01/08/25 01:32 67 18 99 01/07/25 23:42 97.1 F 68 19 122/56 95 01/07/25 23:09 98 01/07/25 22:10 70 13 137/57 100 01/07/25 22:07 70 15 137/51 97 01/07/25 22:00 71 19 105/52 98 01/07/25 21:55 70 20 81/27 98 01/07/25 21:30 70 20 72/38 100 01/07/25 21:25 75 15 73/18 96 01/07/25 21:13 83 26 H 92/37 01/07/25 21:11 76 18 71/56 99 01/07/25 20:57 81 16 174/66 97 01/07/25 20:56 74 18 62 L 01/07/25 20:41 62 15 96/43 99 01/07/25 20:31 77 23 88/35 100 01/07/25 20:27 77 20 54/32 95 01/07/25 20:26 79 15 97 01/07/25 20:01 79 18 149/43 100 01/07/25 19:59 80 20 174/57 97 01/07/25 19:53 76 17 95/43 95 01/07/25 19:45 76 12 82/42 99 01/07/25 19:41 99.1 F 79 24 87/38 98 Pain Assessment - Last Documented Pain Intensity 0 Pain Scale Used [facility] Intake and Output: Intake & Output 01/05/25 01/06/25 01/07/25 01/08/25 11:59 11:59 11:59 11:59 Intake Total 569 Output Total 780 Balance -211 Weight 119.4 kg Lab Results: Lab Results-Last 24 Hours 01/07/25 01/07/25 01/07/25 Range/Units 20:10 20:10 20:16 WBC 7.4 (3.98-10.04) x10^3/uL RBC 3.96 (3.93-5.22) x10^6/uL Hgb 10.7 L (11.2-15.7) g/dL Hct 35.7 (34.1-44.9) % MCV 90.2 (79.4-94.8) fL MCH 27.0 (25.6-32.2) pg MCHC 30.0 L (32.2-35.5) g/dL RDW 15.4 H (11.7-14.4) % Plt Count 145 L (182-369) x10^3/uL MPV 9.9 (9.4-12.3) fL Gran % 83.0 H (34.0-71.1) % Immature Gran % (Auto) 1.0 H (0.001-0.429) % Nucleat RBC Rel Count 0.0 (0.00-0.2) % Eos # (Auto) 0.23 (0.04-0.36) x10^3/uL Immature Gran # (Auto) 0.07 H (0.001-0.031) x10^3u/L Absolute Lymphs (auto) 0.64 L (1.18-3.74) x10^3/uL Absolute Monos (auto) 0.28 (0.24-0.86) x10^3/uL Absolute Nucleated RBC 0.00 (0.00-0.012) x10^3u/L Lymphocytes % 8.7 L (19.3-51.7) % Monocytes % 3.8 L (4.7-12.5) % Eosinophils % 3.1 (0.7-5.8) % Basophils % 0.4 (0.1-1.2) % Absolute Granulocytes 6.11 (1.56-6.13) x10^3/uL Basophils # 0.03 (0.01-0.08) x10^3/uL pO2/FiO2 Ratio 21.0 % VBG pH 7.60 H* (7.32-7.42) VBG pCO2 at Pat Temp 26 L (42-55) mm/Hg VBG pO2 at Pat Temp 161 H (25-40) mm/Hg VBG HCO3 25.5 (22-28) meq/L VBG O2 Sat (Eloy) 99.9 (95-100) VBG Base Excess 4.6 H (-2.0-2.0) VBG Hemoglobin 11.5 VBG Carboxyhemoglobin 4.8 (0.0-6.9) % T HGB POC Potassium 5.2 H (3.5-5.1) Sodium (135-145) mmol/L Potassium (3.5-5.1) mmol/L Chloride (98-107) mmol/L Carbon Dioxide (22-30) mmol/L Anion Gap (5-15) MEQ/L BUN (7-17) mg/dL Creatinine (0.52-1.04) mg/dL Estimated GFR ML/MIN Glucose (74-106) mg/dL Hemoglobin A1c (4.5-6.0) % Lactic Acid 0.9 (0.4-2.0) Calcium (8.4-10.2) mg/dL Total Bilirubin (0.2-1.3) mg/dL AST (14-36) U/L ALT (0-35) U/L Alkaline Phosphatase (38-126) U/L Troponin I (0.000-0.033) ng/mL NT-Pro-B Natriuret Pep (<300) pg/mL Serum Total Protein (6.3-8.2) g/dL Albumin (3.5-5.0) g/dL Procalcitonin (0.030-0.080) ng/mL Urine Color (Yellow) Urine Appearance (Clear) Urine pH (4.6-8.0) Ur Specific [place] (1.005-1.030) Urine Protein (Negative) Urine Glucose (UA) (Negative) mg/dL Urine Ketones (Negative) Urine Blood (Negative) Urine Nitrite (Negative) Urine Bilirubin (Negative) Urine Urobilinogen (0.2) mg/dL Ur Leukocyte Esterase (Negative) U Hyaline Cast (Auto) (0-2) /LPF Urine Microscopic RBC (0-5) /HPF Urine Microscopic WBC (0-5) /HPF Ur Epithelial Cells (None Seen) /HPF Urine Bacteria (None Seen) /HPF Urine Yeast (Budding) (None Seen) /HPF Urine Culture Reflexed (NO) 01/07/25 01/07/25 01/07/25 Range/Units 20:16 20:16 20:16 WBC (3.98-10.04) x10^3/uL RBC (3.93-5.22) x10^6/uL Hgb (11.2-15.7) g/dL Hct (34.1-44.9) % MCV (79.4-94.8) fL MCH (25.6-32.2) pg MCHC (32.2-35.5) g/dL RDW (11.7-14.4) % Plt Count (182-369) x10^3/uL MPV (9.4-12.3) fL Gran % (34.0-71.1) % Immature Gran % (Auto) (0.001-0.429) % Nucleat RBC Rel Count (0.00-0.2) % Eos # (Auto) (0.04-0.36) x10^3/uL Immature Gran # (Auto) (0.001-0.031) x10^3u/L Absolute Lymphs (auto) (1.18-3.74) x10^3/uL Absolute Monos (auto) (0.24-0.86) x10^3/uL Absolute Nucleated RBC (0.00-0.012) x10^3u/L Lymphocytes % (19.3-51.7) % Monocytes % (4.7-12.5) % Eosinophils % (0.7-5.8) % Basophils % (0.1-1.2) % Absolute Granulocytes (1.56-6.13) x10^3/uL Basophils # (0.01-0.08) x10^3/uL pO2/FiO2 Ratio % VBG pH (7.32-7.42) VBG pCO2 at Pat Temp (42-55) mm/Hg VBG pO2 at Pat Temp (25-40) mm/Hg VBG HCO3 (22-28) meq/L VBG O2 Sat (Eloy) (95-100) VBG Base Excess (-2.0-2.0) VBG Hemoglobin VBG Carboxyhemoglobin (0.0-6.9) % T HGB POC Potassium (3.5-5.1) Sodium 134 L (135-145) mmol/L Potassium 4.6 (3.5-5.1) mmol/L Chloride 99 (98-107) mmol/L Carbon Dioxide 30 (22-30) mmol/L Anion Gap 10.2 (5-15) MEQ/L BUN 23 H (7-17) mg/dL Creatinine 1.23 H (0.52-1.04) mg/dL Estimated GFR 44.2 ML/MIN Glucose 141 H (74-106) mg/dL Hemoglobin A1c (4.5-6.0) % Lactic Acid (0.4-2.0) Calcium 8.1 L (8.4-10.2) mg/dL Total Bilirubin 0.50 (0.2-1.3) mg/dL AST 29 (14-36) U/L ALT 16 (0-35) U/L Alkaline Phosphatase 108 (38-126) U/L Troponin I < 0.012 (0.000-0.033) ng/mL NT-Pro-B Natriuret Pep 372 (<300) pg/mL Serum Total Protein 5.1 L (6.3-8.2) g/dL Albumin 3.0 L (3.5-5.0) g/dL Procalcitonin 0.818 H (0.030-0.080) ng/mL Urine Color (Yellow) Urine Appearance (Clear) Urine pH (4.6-8.0) Ur Specific [place] (1.005-1.030) Urine Protein (Negative) Urine Glucose (UA) (Negative) mg/dL Urine Ketones (Negative) Urine Blood (Negative) Urine Nitrite (Negative) Urine Bilirubin (Negative) Urine Urobilinogen (0.2) mg/dL Ur Leukocyte Esterase (Negative) U Hyaline Cast (Auto) (0-2) /LPF Urine Microscopic RBC (0-5) /HPF Urine Microscopic WBC (0-5) /HPF Ur Epithelial Cells (None Seen) /HPF Urine Bacteria (None Seen) /HPF Urine Yeast (Budding) (None Seen) /HPF Urine Culture Reflexed (NO) 01/07/25 01/08/25 01/08/25 Range/Units 21:32 07:00 07:00 WBC 5.0 (3.98-10.04) x10^3/uL RBC 3.90 L (3.93-5.22) x10^6/uL Hgb 10.4 L (11.2-15.7) g/dL Hct 34.2 (34.1-44.9) % MCV 87.7 (79.4-94.8) fL MCH 26.7 (25.6-32.2) pg MCHC 30.4 L (32.2-35.5) g/dL RDW 15.6 H (11.7-14.4) % Plt Count 110 L (182-369) x10^3/uL MPV 10.0 (9.4-12.3) fL Gran % (34.0-71.1) % Immature Gran % (Auto) (0.001-0.429) % Nucleat RBC Rel Count (0.00-0.2) % Eos # (Auto) (0.04-0.36) x10^3/uL Immature Gran # (Auto) (0.001-0.031) x10^3u/L Absolute Lymphs (auto) (1.18-3.74) x10^3/uL Absolute Monos (auto) (0.24-0.86) x10^3/uL Absolute Nucleated RBC (0.00-0.012) x10^3u/L Lymphocytes % (19.3-51.7) % Monocytes % (4.7-12.5) % Eosinophils % (0.7-5.8) % Basophils % (0.1-1.2) % Absolute Granulocytes (1.56-6.13) x10^3/uL Basophils # (0.01-0.08) x10^3/uL pO2/FiO2 Ratio % VBG pH (7.32-7.42) VBG pCO2 at Pat Temp (42-55) mm/Hg VBG pO2 at Pat Temp (25-40) mm/Hg VBG HCO3 (22-28) meq/L VBG O2 Sat (Eloy) (95-100) VBG Base Excess (-2.0-2.0) VBG Hemoglobin VBG Carboxyhemoglobin (0.0-6.9) % T HGB POC Potassium (3.5-5.1) Sodium 137 (135-145) mmol/L Potassium 4.5 (3.5-5.1) mmol/L Chloride 101 (98-107) mmol/L Carbon Dioxide 31 H (22-30) mmol/L Anion Gap 10.1 (5-15) MEQ/L BUN 20 H (7-17) mg/dL Creatinine 1.24 H (0.52-1.04) mg/dL Estimated GFR 43.7 ML/MIN Glucose 104 (74-106) mg/dL Hemoglobin A1c (4.5-6.0) % Lactic Acid (0.4-2.0) Calcium 7.9 L (8.4-10.2) mg/dL Total Bilirubin (0.2-1.3) mg/dL AST (14-36) U/L ALT (0-35) U/L Alkaline Phosphatase (38-126) U/L Troponin I (0.000-0.033) ng/mL NT-Pro-B Natriuret Pep (<300) pg/mL Serum Total Protein (6.3-8.2) g/dL Albumin (3.5-5.0) g/dL Procalcitonin (0.030-0.080) ng/mL Urine Color Yellow (Yellow) Urine Appearance Cloudy A (Clear) Urine pH 7.0 (4.6-8.0) Ur Specific [place] 1.010 (1.005-1.030) Urine Protein Trace A (Negative) Urine Glucose (UA) 500 A (Negative) mg/dL Urine Ketones Negative (Negative) Urine Blood Large A (Negative) Urine Nitrite Negative (Negative) Urine Bilirubin Negative (Negative) Urine Urobilinogen 0.2 (0.2) mg/dL Ur Leukocyte Esterase Moderate A (Negative) U Hyaline Cast (Auto) NONE SEEN (0-2) /LPF Urine Microscopic RBC 21-50 A (0-5) /HPF Urine Microscopic WBC 51-100 A (0-5) /HPF Ur Epithelial Cells Few (None Seen) /HPF Urine Bacteria Many A (None Seen) /HPF Urine Yeast (Budding) Few A (None Seen) /HPF Urine Culture Reflexed YES (NO) 01/08/25 Range/Units 07:00 WBC (3.98-10.04) x10^3/uL RBC (3.93-5.22) x10^6/uL Hgb (11.2-15.7) g/dL Hct (34.1-44.9) % MCV (79.4-94.8) fL MCH (25.6-32.2) pg MCHC (32.2-35.5) g/dL RDW (11.7-14.4) % Plt Count (182-369) x10^3/uL MPV (9.4-12.3) fL Gran % (34.0-71.1) % Immature Gran % (Auto) (0.001-0.429) % Nucleat RBC Rel Count (0.00-0.2) % Eos # (Auto) (0.04-0.36) x10^3/uL Immature Gran # (Auto) (0.001-0.031) x10^3u/L Absolute Lymphs (auto) (1.18-3.74) x10^3/uL Absolute Monos (auto) (0.24-0.86) x10^3/uL Absolute Nucleated RBC (0.00-0.012) x10^3u/L Lymphocytes % (19.3-51.7) % Monocytes % (4.7-12.5) % Eosinophils % (0.7-5.8) % Basophils % (0.1-1.2) % Absolute Granulocytes (1.56-6.13) x10^3/uL Basophils # (0.01-0.08) x10^3/uL pO2/FiO2 Ratio % VBG pH (7.32-7.42) VBG pCO2 at Pat Temp (42-55) mm/Hg VBG pO2 at Pat Temp (25-40) mm/Hg VBG HCO3 (22-28) meq/L VBG O2 Sat (Eloy) (95-100) VBG Base Excess (-2.0-2.0) VBG Hemoglobin VBG Carboxyhemoglobin (0.0-6.9) % T HGB POC Potassium (3.5-5.1) Sodium (135-145) mmol/L Potassium (3.5-5.1) mmol/L Chloride (98-107) mmol/L Carbon Dioxide (22-30) mmol/L Anion Gap (5-15) MEQ/L BUN (7-17) mg/dL Creatinine (0.52-1.04) mg/dL Estimated GFR ML/MIN Glucose (74-106) mg/dL Hemoglobin A1c 6.97 H (4.5-6.0) % Lactic Acid (0.4-2.0) Calcium (8.4-10.2) mg/dL Total Bilirubin (0.2-1.3) mg/dL AST (14-36) U/L ALT (0-35) U/L Alkaline Phosphatase (38-126) U/L Troponin I (0.000-0.033) ng/mL NT-Pro-B Natriuret Pep (<300) pg/mL Serum Total Protein (6.3-8.2) g/dL Albumin (3.5-5.0) g/dL Procalcitonin (0.030-0.080) ng/mL Urine Color (Yellow) Urine Appearance (Clear) Urine pH (4.6-8.0) Ur Specific [place] (1.005-1.030) Urine Protein (Negative) Urine Glucose (UA) (Negative) mg/dL Urine Ketones (Negative) Urine Blood (Negative) Urine Nitrite (Negative) Urine Bilirubin (Negative) Urine Urobilinogen (0.2) mg/dL Ur Leukocyte Esterase (Negative) U Hyaline Cast (Auto) (0-2) /LPF Urine Microscopic RBC (0-5) /HPF Urine Microscopic WBC (0-5) /HPF Ur Epithelial Cells (None Seen) /HPF Urine Bacteria (None Seen) /HPF Urine Yeast (Budding) (None Seen) /HPF Urine Culture Reflexed (NO) Radiology Exams: Radiology Procedures Category Date Time Status ABDOMEN AND PELVIS W/0 CONTRAS [CT] Stat Exams 01/07/25 19:59 Completed Assessment/Plan (1) Sepsis Current Visit: Yes Status: Acute Assessment & Plan: - secondary to acute cystitis with severe hypotension on arrival, eventually fluid responsive. Source appears to be urinary; patient has had recurrent UTI, and is normally on Keflex suppressive therapy. However, she failed outpatient therapy Levaquin, likely because she is growing Pseudomonas reportedly from her [facility] ED visit. It is difficult to assess for presence of dysuria based on patient's neurologic history, but she has an elevated procalcitonin and no other clear source of her sepsis. Cefepime 1 g IV q.8 hours Reviewed [facility] medical records to determine urine culture results and sensitivity testing Repeat fluid bolus as needed to maintain blood pressure, although currently st able - UC and BC x2 pending - lactic acid WNL - CBC CMP reviewed (2) Complicated UTI (urinary tract infection) Current Visit: Yes Status: Acute Assessment & Plan: - + septic on admission - With repeated UTI's including recent dx of pseudomonas in urine at [facility] per old records. 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 (4) Urinary incontinence Current Visit: Yes Status: Chronic Assessment & Plan: - Continue home regimen - Noted adds to complexity Code(s): R32 - UNSPECIFIED URINARY INCONTINENCE (5) Aortic stenosis Current Visit: Yes Status: Chronic Qualifiers: Cardiac valve disease etiology: etiology unspecified Qualified Code(s): I35.0 - Nonrheumatic aortic (valve) stenosis Assessment & Plan: - + Aortic murmur - Per patient, not severe enough to require intervention yet, per her insurance claims clerk. However, she is describing some presyncope as well as orthostatic hypotension. She was previously on Lasix but this was stopped due to chronic hypotension. I suspect that her severe hypotension earlier was at least partially mediated by her aortic stenosis, as patients with AAS are particularly preload sensitive. Aggressive fluid replacement as needed to maintain blood pressure Monitor overall volume status - TEDS for BLLE non-pitting edema. - No recent echo to review Code(s): I35.0 - NONRHEUMATIC AORTIC (VALVE) STENOSIS (6) Hypothyroidism Current Visit: Yes Status: Chronic Assessment & Plan: Continue home levothyroxine Code(s): E03.9 - HYPOTHYROIDISM, UNSPECIFIED (7) COPD (chronic obstructive pulmonary disease) Current Visit: Yes Status: Chronic Assessment & Plan: - Chronic w/o acute exacerbation Patient remains stable on her home 3 L oxygen- 100% Continue oxygen, titrate to maintain SpO2 between 91 and 94% PRN DuoNeb (8) Failure of outpatient treatment Current Visit: Yes Status: Acute Assessment & Plan: - Failed OP Levaquin and Keflex for UTI Code(s): Z78.9 - OTHER SPECIFIED HEALTH STATUS (9) FLOR (acute kidney injury) Current Visit: Yes Status: Acute Assessment & Plan: - Creat 1.24- baseline 1.16 - NS @ 50ml/hr - Watch for fluid overload d/t heart hx Code(s): N17.9 - ACUTE KIDNEY FAILURE, UNSPECIFIED (10) Obesity, morbid, BMI 40.0-49.9 Current Visit: Yes Status: Chronic Assessment & Plan: - Advised ADA diet and exercise control Code(s): E66.01 - MORBID (SEVERE) OBESITY DUE TO EXCESS CALORIES (11) H/O splenomegaly Current Visit: Yes Status: Chronic Assessment & Plan: - As seen om CT- pt reports this is chronic finding Code(s): Z87.898 - PERSONAL HISTORY OF OTHER SPECIFIED CONDITIONS (12) Nonalcoholic hepatosteatosis Current Visit: Yes Status: Chronic Assessment & Plan: - As seen om CT- pt reports this is chronic finding Code(s): K76.0 - FATTY (CHANGE OF) LIVER, NOT ELSEWHERE CLASSIFIED (13) Renal cyst Current Visit: Yes Status: Chronic Assessment & Plan: - As seen on CT-. A left renal lower pole cortical cyst is noted, measuring 5.4 cm. - This needs OP f/u due to size at d/c. VTE: Lovenox PPI: Protonix Next of KIN: Enrrique Keys [phone] D/C plan: 1-2 days Code status: Full Code(s): N28.1 - CYST OF KIDNEY, ACQUIRED
[2025-01-08] MEDS ORDERED: HUMALOG SQ PRN (12:03)
[2025-01-08] MEDS: Protonix 40MG Tablet PO SCH (21:56)
[2025-01-08] MEDS: Xalatan OP SCH (21:57)
[2025-01-08] MEDS ORDERED: NON-FORMULARY ITEM (Latanoprost/Pf [Iyuzeh 0.005% Eye Drop] 1 EACH Droperette) DROPS SCH (22:00)
[2025-01-09 05:15] LABS: Hematocrit 34.2 % (34.1-44.9); Hemoglobin 10.3 g/dL (11.2-15.7); Mean Cell Volume 89.5 fL (79.4-94.8); Mean Corpuscular Hgb Concent. 30.1 g/dL (32.2-35.5); Mean Platelet Volume 10.4 fL (9.4-12.3); Platelet Count 110 x10^3/uL (182-369); Red Blood Count 3.82 x10^6/uL (3.93-5.22); Red Cell Distribution Width 15.5 % (11.7-14.4)
[2025-01-09 05:35] LABS: ALBUMIN 3.1 g/dL (3.5-5.0); ANION GAP 11.9 MEQ/L (5-15); BILIRUBIN,TOTAL 0.4 mg/dL (0.2-1.3); Calcium 8.2 mg/dL (8.4-10.2); Creatinine 1 1.23 mg/dL (0.52-1.04); EST GLOMERULAR FILTRATION RATE 44.2 ML/MIN; Potassium 4.5 mmol/L (3.5-5.1); Total Protein 5.4 g/dL (6.3-8.2)
--- NOTE | 2025-01-09 05:40 | PCM.NOTE ---
Date and Time: 01/09/25 0535 Subjective Assessment: HPI: Ms. Chan is an 79-year-old woman with a history of chronic urinary incontinence, recurrent UTIs, kidney stones, diabetes, COPD on 3L O2, aortic stenosis, depression, and hypothyroidism admitted on 01/07/25 with generalized weakness and sepsis secondary to a UTI. Her urinary incontinence, caused by a lack of perineal sensation, delays her ability to recognize UTIs. She was diagnosed with kidney stones on 12/30 and started on Levaquin. Previous UTIs with pseudomonas. CT scans revealed chronic findings including a renal cyst and fatty liver. She is being treated IP with Cefepime for the UTI and is being monitored for FLOR with normal saline. Her diabetes is well-controlled with an A1C of 6.97, but she has not been consistently taking her long-acting insulin. Patient hypotensive on arrival but stable now. Currently she does not meet sepsis criteria. Blood and urine cultures are pending. Objective Data Vital Signs: Vital Signs - 24 hr Temp Pulse Resp BP Pulse Ox 01/09/25 03:55 97.3 F 59 L 18 133/60 99 01/08/25 23:51 98.1 F 68 18 103/47 99 01/08/25 20:00 97.1 F 59 L 18 124/50 100 01/08/25 19:50 67 16 99 01/08/25 16:00 97.6 F 61 18 137/53 100 01/08/25 12:00 96.6 F 59 L 18 134/45 98 01/08/25 09:05 68 16 97 01/08/25 07:36 96.8 F 52 L 16 122/51 100 Pain Assessment - Last Documented Pain Intensity 0 [facility] Intake and Output: Intake & Output 01/06/25 01/07/25 01/08/25 01/09/25 11:59 11:59 11:59 11:59 Intake Total 569 2834 Output Total 780 2650 Balance -211 184 Weight 119.4 kg Lab Results: Lab Results-Last 24 Hours 01/08/25 01/08/25 01/08/25 Range/Units 07:00 07:00 07:00 WBC 5.0 (3.98-10.04) x10^3/uL RBC 3.90 L (3.93-5.22) x10^6/uL Hgb 10.4 L (11.2-15.7) g/dL Hct 34.2 (34.1-44.9) % MCV 87.7 (79.4-94.8) fL MCH 26.7 (25.6-32.2) pg MCHC 30.4 L (32.2-35.5) g/dL RDW 15.6 H (11.7-14.4) % Plt Count 110 L (182-369) x10^3/uL MPV 10.0 (9.4-12.3) fL Sodium 137 (135-145) mmol/L Potassium 4.5 (3.5-5.1) mmol/L Chloride 101 (98-107) mmol/L Carbon Dioxide 31 H (22-30) mmol/L Anion Gap 10.1 (5-15) MEQ/L BUN 20 H (7-17) mg/dL Creatinine 1.24 H (0.52-1.04) mg/dL Estimated GFR 43.7 ML/MIN Glucose 104 (74-106) mg/dL Hemoglobin A1c 6.97 H (4.5-6.0) % Calcium 7.9 L (8.4-10.2) mg/dL 01/09/25 Range/Units 05:00 WBC 5.0 (3.98-10.04) x10^3/uL RBC 3.82 L (3.93-5.22) x10^6/uL Hgb 10.3 L (11.2-15.7) g/dL Hct 34.2 (34.1-44.9) % MCV 89.5 (79.4-94.8) fL MCH 27.0 (25.6-32.2) pg MCHC 30.1 L (32.2-35.5) g/dL RDW 15.5 H (11.7-14.4) % Plt Count 110 L (182-369) x10^3/uL MPV 10.4 (9.4-12.3) fL Sodium (135-145) mmol/L Potassium (3.5-5.1) mmol/L Chloride (98-107) mmol/L Carbon Dioxide (22-30) mmol/L Anion Gap (5-15) MEQ/L BUN (7-17) mg/dL Creatinine (0.52-1.04) mg/dL Estimated GFR ML/MIN Glucose (74-106) mg/dL Hemoglobin A1c (4.5-6.0) % Calcium (8.4-10.2) mg/dL Radiology Exams: Radiology Procedures Category Date Time Status ABDOMEN AND PELVIS W/0 CONTRAS [CT] Stat Exams 01/07/25 19:59 Completed Assessment/Plan (1) Sepsis Current Visit: Yes Status: Acute Assessment & Plan: -Most likely secondary to UTI with cultures pending -Continue cefepime to cover pseudomonas seen on previous cultures -No longer meets sepsis criteria -Blood and urine cultures pending -BP stable -LA reviewed from admission and WNL - CBC CMP reviewed (2) Complicated UTI (urinary tract infection) Current Visit: Yes Status: Acute Assessment & Plan: - With repeated UTI's including recent dx of pseudomonas in urine at [facility] per old records. - Cefepime - IVF - BC X2 and UC pending - CBC, CMP reviewed - Likely will need OP referral to urology OP for repeated UTI infections Code(s): N39.0 - URINARY TRACT INFECTION, SITE NOT SPECIFIED (3) FLOR (acute kidney injury) Current Visit: Yes Status: Acute Assessment & Plan: - Creat baseline 1.16 - NS @ 50ml/hr - Watch for fluid overload d/t heart hx -Monitor renal/lytes -Avoid nephrotoxic agents Code(s): N17.9 - ACUTE KIDNEY FAILURE, UNSPECIFIED (4) Failure of outpatient treatment Current Visit: Yes Status: Acute Assessment & Plan: - Failed OP Levaquin and Keflex for UTI Code(s): Z78.9 - OTHER SPECIFIED HEALTH STATUS (5) Aortic stenosis Current Visit: Yes Status: Chronic Qualifiers: Cardiac valve disease etiology: etiology unspecified Qualified Code(s): I35.0 - Nonrheumatic aortic (valve) stenosis Assessment & Plan: - + Aortic murmur - Per patient, not severe enough to require intervention yet, 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 However, she is describing some presyncope as well as orthostatic hypotension. She was previously on Lasix but this was stopped due to chronic hypotension. I suspect that her severe hypotension earlier was at least partially mediated by her aortic stenosis, as patients with AAS are particularly preload sensitive. Aggressive fluid replacement as needed to maintain blood pressure Monitor overall volume status - TEDS for BLLE non-pitting edema. - No recent echo to review Code(s): I35.0 - NONRHEUMATIC AORTIC (VALVE) STENOSIS (6) COPD (chronic obstructive pulmonary disease) Current Visit: Yes Status: Chronic Assessment & Plan: - Chronic w/o acute exacerbation Patient remains stable on her home 3 L oxygen- Continue oxygen, titrate to maintain SpO2 between 91 and 94% PRN DuoNeb (7) H/O splenomegaly Current Visit: Yes Status: Chronic Assessment & Plan: As seen om CT- pt reports this is chronic finding Code(s): Z87.898 - PERSONAL HISTORY OF OTHER SPECIFIED CONDITIONS (8) Hypothyroidism Current Visit: Yes Status: Chronic Assessment & Plan: Continue home levothyroxine Code(s): E03.9 - HYPOTHYROIDISM, UNSPECIFIED (9) Nonalcoholic hepatosteatosis Current Visit: Yes Status: Chronic Assessment & Plan: - As seen om CT- pt reports this is chronic finding Code(s): K76.0 - FATTY (CHANGE OF) LIVER, NOT ELSEWHERE CLASSIFIED (10) Renal cyst Current Visit: Yes Status: Chronic Assessment & Plan: - As seen on CT-. A left renal lower pole cortical cyst is noted, measuring 5.4 cm. - This needs OP f/u due to size at d/c. Code(s): N28.1 - CYST OF KIDNEY, ACQUIRED (11) Obesity, morbid, BMI 40.0-49.9 Current Visit: Yes Status: Chronic Assessment & Plan: - Advised ADA diet and exercise control Code(s): E66.01 - MORBID (SEVERE) OBESITY DUE TO EXCESS CALORIES (12) Type II diabetes mellitus Current Visit: Yes Status: Chronic Qualifiers: Diabetes mellitus termite control servicer insulin use: with termite control servicer use Diabetes mellitus complication status: with ophthalmic complications Laterality: bilateral Assessment & Plan: - A1C 6.97- controlled - accuchecks ac/hs - Humalog s/s low dose - Pt states she does not take lantus at home on a regular bases so this was stopped today. (13) Urinary incontinence Current Visit: Yes Status: Chronic Assessment & Plan: - Continue home regimen - Noted adds to complexity VTE: Lovenox PPI: Protonix Next of KIN: Enrrique Keys [phone] D/C plan: 1-2 days Code status: Full Code(s): R32 - UNSPECIFIED URINARY INCONTINENCE
[2025-01-09 08:16] VITALS: BP 109/47; PULSE 60; RESP 20; TEMP 97.5; O2SAT 99
--- NOTE | 2025-01-09 11:13 | PCM.DS ---
Discharge Summary Date of Admission: 01/07/25 22:36 Date of Discharge: 01/09/25 Admitting Physician: LEYLA GONZALEZ MD Primary Care Provider: [facility] Allergies Allergies Sulfa (Sulfonamide Antibiotics) Adverse Reaction (Intermediate, Verified 01/07/25 19:44) Hospital Summary - Hospital Course Hospital Course: Ms. Chan is an 79-year-old woman with a history of chronic urinary incontinence, recurrent UTIs, kidney stones, diabetes, COPD on 3L O2, aortic stenosis, depression, and hypothyroidism admitted on 01/07/25 with generalized weakness and sepsis secondary to a UTI. Her urinary incontinence, caused by a lack of perineal sensation, delays her ability to recognize UTIs. She was diagnosed with kidney stones on 12/30 and started on Levaquin. Previous UTIs with pseudomonas. CT scans revealed chronic findings including a renal cyst a nd fatty liver. IP treament with Cefepime for the UTI. FLOR improving. Her diabetes is well-controlled with an A1C of 6.97, but she has not been consistently taking her long-acting insulin. Patient hypotensive on arrival but stable now. Currently she does not meet sepsis criteria. Blood cultures neg ative. and urine cultures with no predominant organism. Patient does follow with urology as OP. Will discharge with levofloxacin. I have advised patient to follow up with urology as OP. Patient agreeable to plan and ready for discharge. Advised follow up with PCP for recheck of kidney function next week. Discharge Note New Diagnosis: UTI New Medications: Levofloxacin Follow Up: Urology/PCP I spent 35 minutes [id number] with the patient on the day of discharge p erforming discharge exam, discussing hospital stay and discharge instructions with patient and caregivers, preparation of discharge records, prescriptions & referral forms and addressing any questions/concerns the patient had as documented above. - Vitals & Intake/Output Vital Signs: Vital Signs Temperature 97.5 F 01/09/25 08:00 Pulse Rate 60 01/09/25 08:00 Respiratory Rate 20 01/09/25 08:00 Blood Pressure 109/47 01/09/25 08:00 O2 Sat by Pulse Oximetry 99 01/09/25 08:00 Intake & Output: Intake & Output 01/06/25 01/07/25 01/08/25 01/09/25 11:59 11:59 11:59 11:59 Intake Total 569 3074 Output Total 527 1580 Balance -211 -476 Weight 119.4 kg 119 kg - Lab Result Diagrams: 01/09/25 05:00 01/09/25 05:00 Lab Results-Last 24 Hrs: Lab Results-Last 24 Hours 01/09/25 01/09/25 Range/Units 05:00 05:00 WBC 5.0 (3.98-10.04) x10^3/uL RBC 3.82 L (3.93-5.22) x10^6/uL Hgb 10.3 L (11.2-15.7) g/dL Hct 34.2 (34.1-44.9) % MCV 89.5 (79.4-94.8) fL MCH 27.0 (25.6-32.2) pg MCHC 30.1 L (32.2-35.5) g/dL RDW 15.5 H (11.7-14.4) % Plt Count 110 L (182-369) x10^3/uL MPV 10.4 (9.4-12.3) fL Sodium 136 (135-145) mmol/L Potassium 4.5 (3.5-5.1) mmol/L Chloride 102 (98-107) mmol/L Carbon Dioxide 27 (22-30) mmol/L Anion Gap 11.9 (5-15) MEQ/L BUN 20 H (7-17) mg/dL Creatinine 1.23 H (0.52-1.04) mg/dL Estimated GFR 44.2 ML/MIN Glucose 95 (74-106) mg/dL Calcium 8.2 L (8.4-10.2) mg/dL Total Bilirubin 0.40 (0.2-1.3) mg/dL AST 35 (14-36) U/L ALT 15 (0-35) U/L Alkaline Phosphatase 89 (38-126) U/L Serum Total Protein 5.4 L (6.3-8.2) g/dL Albumin 3.1 L (3.5-5.0) g/dL Micro Results-Entire Visit: Microbiology 01/07/25 20:16 Blood Culture - Preliminary Blood 01/07/25 21:32 Urine Culture - Final Urine, Void MIXED AGUEDA; 3 OR MORE TYPES. NO PREDOMINANT ORGANISM. NO FURTHER WORKUP. PLEASE RESUBMIT IF CLINICALLY INDICATED. Accuchecks Date 01/09/25 Date 01/08/25 Date 01/08/25 Date 01/08/25 Time 22:31 Time 16:40 Time 12:04 - Radiology Exams Ordered Rad Exams-Entire Visit: Radiology Procedures Category Date Time Status ABDOMEN AND PELVIS W/0 CONTRAS [CT] Stat Exams 01/07/25 19:59 Completed - Procedures and Test Procedures and Tests throughout Hospitalization: Therapy Orders & Screens 01/08/25 00:18 RT Screen per Nursing Assess ONCE Comment: Protocol Order Physician Instructions: Greater than 3 points order RT Admission Screen Reason For Exam: Triggered on Admission Diagnosis: UTI Diagnosis: UTI Pneumonia: No Home O2: Yes: 3L Asthma: Yes CHF: Yes Home CPAP/BIPAP: No Home Nebs/MDI: Yes Total Points: 17 01/08/25 01:32 Oxygen Nasal Cannula 3 lpm Comment: Diagnosis: generalized weakness Respiratory Therapy Assessment DAILY Comment: Diagnosis: generalized weakness 01/08/25 12:22 PT Eval & Treat (MD Order) ONCE Reason for Eval:: weakness- home needs vs. rehab Diagnosis: generalized weakness Discharge Exam General Appearance: no apparent distress Neurologic Exam: alert, oriented x 3, cooperative Eye Exam: PERRL Ears, Nose, Throat Exam: normal ENT inspection Neck Exam: normal inspection Respiratory Exam: normal breath sounds, lungs clear Cardiovascular Exam: regular rate/rhythm, normal heart sounds Gastrointestinal/Abdomen Exam: soft, normal bowel sounds Pelvic Exam: deferred Rectal Exam: deferred Back Exam: normal inspection Extremity Exam: normal inspection Final Diagnosis/Problem List - Final Discharge Diagnosis/Problem (1) Sepsis Current Visit: Yes Status: Acute Assessment & Plan: -Most likely secondary to UTI with cultures pending -Continue cefepime to cover pseudomonas seen on previous cultures -No longer meets sepsis criteria -Blood cultures NGTD and urine culture with no predominant organism- will continue Op with Levaquin with follow up with Urology -BP stable -LA reviewed from admission and WNL - CBC CMP reviewed (2) Complicated UTI (urinary tract infection) Current Visit: Yes Status: Acute Assessment & Plan: - With repeated UTI's including recent dx of pseudomonas in urine at [facility] per old records. - Cefepime while IP - will continue with levaquin OP - IVF - BC X2 and UC as stated above - CBC, CMP reviewed - Likely will need OP referral to urology OP for repeated UTI infections - Patient follows with Dr. Olivares Code(s): N39.0 - URINARY TRACT INFECTION, SITE NOT SPECIFIED (3) FLOR (acute kidney injury) Current Visit: Yes Status: Acute Assessment & Plan: - Creat at 1.23 baseline 1.16 -Advised follow up next week with PCP for labs Code(s): N17.9 - ACUTE KIDNEY FAILURE, UNSPECIFIED (4) Failure of outpatient treatment Current Visit: Yes Status: Acute Assessment & Plan: - Failed OP Keflex for UTI Code(s): Z78.9 - OTHER SPECIFIED HEALTH STATUS (5) Aortic stenosis Current Visit: Yes Status: Chronic Qualifiers: Cardiac valve disease etiology: etiology unspecified Qualified Code(s): I35.0 - Nonrheumatic aortic (valve) stenosis Assessment & Plan: - + Aortic murmur - Per patient, not severe enough to require intervention yet, per her knife edger. However, she is describing some presyncope as well as orthostatic hypotension. She was previously on Lasix but this was stopped due to chronic hypotension. I suspect that her severe hypotension earlier was at least partially mediated by her aortic stenosis, as patients with AAS are particularly preload sensitive. Aggressive fluid replacement as needed to maintain blood pressure Monitor overall volume status - TEDS for BLLE non-pitting edema. - No recent echo to review Code(s): I35.0 - NONRHEUMATIC AORTIC (VALVE) STENOSIS (6) COPD (chronic obstructive pulmonary disease) Current Visit: Yes Status: Chronic Assessment & Plan: - Chronic w/o acute exacerbation Patient remains stable on her home 3 L oxygen- Continue oxygen, titrate to maintain SpO2 between 91 and 94% PRN DuoNeb (7) H/O splenomegaly Current Visit: Yes Status: Chronic Assessment & Plan: As seen om CT- pt reports this is chronic finding Code(s): Z87.898 - PERSONAL HISTORY OF OTHER SPECIFIED CONDITIONS (8) Hypothyroidism Current Visit: Yes Status: Chronic Assessment & Plan: Continue home levothyroxine Code(s): E03.9 - HYPOTHYROIDISM, UNSPECIFIED (9) Nonalcoholic hepatosteatosis Current Visit: Yes Status: Chronic Assessment & Plan: - As seen om CT- pt reports this is chronic finding Code(s): K76.0 - FATTY (CHANGE OF) LIVER, NOT ELSEWHERE CLASSIFIED (10) Renal cyst Current Visit: Yes Status: Chronic Assessment & Plan: - As seen on CT-. A left renal lower pole cortical cyst is noted, measuring 5.4 cm. - This needs OP f/u due to size at d/c. Code(s): N28.1 - CYST OF KIDNEY, ACQUIRED (11) Obesity, morbid, BMI 40.0-49.9 Current Visit: Yes Status: Chronic Assessment & Plan: - Advised ADA diet and exercise control Code(s): E66.01 - MORBID (SEVERE) OBESITY DUE TO EXCESS CALORIES (12) Type II diabetes mellitus Current Visit: Yes Status: Chronic Qualifiers: Diabetes mellitus adjunct faculty for medical terminology insulin use: with adjunct faculty for medical terminology use Diabetes mellitus complication status: with ophthalmic complications Laterality: bilateral Assessment & Plan: - A1C 6.97- controlled - accuchecks ac/hs - Humalog s/s low dose - Pt states she does not take lantus at home on a regular bases so this was stopped today. (13) Urinary incontinence Current Visit: Yes Status: Chronic Assessment & Plan: - Continue home regimen - Noted adds to complexity (2) Complicated UTI (urinary tract infection) Current Visit: Yes Status: Acute Code(s): N39.0 - URINARY TRACT INFECTION, SITE NOT SPECIFIED (3) FLOR (acute kidney injury) Current Visit: Yes Status: Acute Code(s): N17.9 - ACUTE KIDNEY FAILURE, UNSPECIFIED (4) Failure of outpatient treatment Current Visit: Yes Status: Acute Code(s): Z78.9 - OTHER SPECIFIED HEALTH STATUS (5) Aortic stenosis Current Visit: Yes Status: Chronic Code(s): I35.0 - NONRHEUMATIC AORTIC (VALVE) STENOSIS (6) COPD (chronic obstructive pulmonary disease) Current Visit: Yes Status: Chronic (7) H/O splenomegaly Current Visit: Yes Status: Chronic Code(s): Z87.898 - PERSONAL HISTORY OF OTHER SPECIFIED CONDITIONS (8) Hypothyroidism Current Visit: Yes Status: Chronic Code(s): E03.9 - HYPOTHYROIDISM, UNSPECIFIED (9) Nonalcoholic hepatosteatosis Current Visit: Yes Status: Chronic Code(s): K76.0 - FATTY (CHANGE OF) LIVER, NOT ELSEWHERE CLASSIFIED (10) Renal cyst Current Visit: Yes Status: Chronic Code(s): N28.1 - CYST OF KIDNEY, ACQUIRED (11) Obesity, morbid, BMI 40.0-49.9 Current Visit: Yes Status: Chronic Code(s): E66.01 - MORBID (SEVERE) OBESITY DUE TO EXCESS CALORIES (12) Type II diabetes mellitus Current Visit: Yes Status: Chronic (13) Urinary incontinence Current Visit: Yes Status: Chronic Code(s): R32 - UNSPECIFIED URINARY INCONTINENCE - Discharge Discharge Date: 01/09/25 Disposition: HOME HEALTH SERVICE Condition: Stable Prescriptions: New levoFLOXacin [Levofloxacin] 750 mg PO Q48H 7 Days #4 tablet Continue Tamsulosin HCl 0.4 mg [Flomax 0.4 MG] 1 cap PO DAILY Ondansetron ODT 4 MG [Zofran Odt 4 mg] 1 tab PO Q6H PRN PRN PRN Reason: Nausea Fluticasone Propionate 50 mcg IH DAILY Fluconazole 100 mg [Diflucan 100 MG] 1 tab PO DAILY Dapagliflozin Propanediol [Farxiga] 1 tab PO DAILY Sertraline HCl [Zoloft] 25 mg PO DAILY Gabapentin 400 mg PO DAILY Gabapentin 800 mg PO EVENING MEAL Tirzepatide [Mounjaro] 7.5 mg SQ WEEKLY Glipizide 10 mg [Glucotrol 10 MG] 1 tab PO BID Levothyroxine Sodium 25 mcg PO DAILY Furosemide [Lasix] 20 mg PO DAILY Spironolactone 25 mg [Aldactone 25 MG] 1 tab PO DAILY PANTOPRAZOLE 40 mg Tablet [Protonix 40MG Tablet] 1 tab PO HS Timolol Maleate/Pf [Timolol Maleate 0.5% Eye Drop] 1 drop DROPS BID Imipramine HCl 25 mg PO HS Allopurinol 100 mg [Zyloprim 100 mg] 1 tab PO DAILY Albuterol Sulfate [Albuterol Sulfate Hfa] 2 puffs IH Q4H PRN PRN PRN Reason: Shortness Of Breath Latanoprost/Pf [Iyuzeh 0.005% Eye Drop] 1 drop DROPS HS Insulin Glargine,Hum.rec.anlog [Basaglar Kwikpen U-100] 10 - 15 units SQ BIDPRN PRN PRN Reason: blood sugar Diclofenac Sodium [Diclofono] 1 applic TOP QID Discontinued levoFLOXacin 1 tab PO DAILY Additional Instructions: [facility] HAS BEEN SET UP FOR YOU. THEY WILL CALL YOU TO ARRANGE A TIME TO COME SEE YOU. THEIR PHONE NUMBER IS [phone] IF YOU NEED ANYTHING PRIOR TO THEM CONTACTING YOU. Follow up with: LIAM ALMANZAR FNP [NON-STAFF PHY W/O PRIVILEGES] - 01/16/25 9:20 am NING OLIVARES [COURTESY STAFF] - (3-5 days)
== END 2025-01-09 11:55 | disposition home health service (06) ==
LOC: ED 19:40 → MED SURG 22:36
PROVIDERS: ADMIT Internal Medicine; ATTEND Internal Medicine
DX: A41.9 Sepsis, unspecified organism (principal); N39.0 Urinary tract infection, site not specified; B96.5 Pseudomonas (aeruginosa) (mallei) (pseudomallei) as the cause of diseases classified elsewhere; N17.9 Acute kidney failure, unspecified; I35.0 Nonrheumatic aortic (valve) stenosis; J44.9 Chronic obstructive pulmonary disease, unspecified; E03.9 Hypothyroidism, unspecified; K76.0 Fatty (change of) liver, not elsewhere classified; N28.1 Cyst of kidney, acquired; E66.01 Morbid (severe) obesity due to excess calories; E11.9 Type 2 diabetes mellitus without complications; R32 Unspecified urinary incontinence; I25.10 Atherosclerotic heart disease of native coronary artery without angina pectoris; I50.9 Heart failure, unspecified; F32.A Depression, unspecified; Z78.9 Other specified health status; Z87.898 Personal history of other specified conditions; Z79.899 Other long term (current) drug therapy; Z99.81 Dependence on supplemental oxygen; Z59.82 Transportation insecurity
CPT/HCPCS: 36415; 74176; 80048; 80053; 81001; 82805; 83036; 83605; 83880; 84145; 84484; 85025; 85027; 87040; 87086; 93005; 93041; 94760; 96374; 96376; 97161; 99285; Q3014; G0378; J0171; J0692; J0696; J1650; A9270-GY